=== PATIENT | male | born 1955 | race Caucasian/White ===

== ENCOUNTER 2016-06-25 10:05 | Inpatient (IN) | payer MEDICARE, OTHER ==
--- NOTE | 2016-06-25 12:09 | RAD ---
HISTORY: Shortness of breath, CHF, pneumonia COMPARISONS: November 05, 2013 VIEWS: 2: Frontal dual-energy and lateral views of the chest. FINDINGS: CARDIOMEDIASTINAL SILHOUETTE: The cardiac silhouette is enlarged. The cardiomediastinal silhouette is otherwise normal. TAWANDA: The tawanda are normal. PLEURA: The costophrenic angles are sharp. No pleural abnormalities are noted. LUNG PARENCHYMA: There is diffuse reticular pattern with indistinct pulmonary vessels. ABDOMEN: The upper abdomen is clear. There is no subphrenic gas. BONES AND SOFT TISSUES: No bone or soft tissue abnormalities are noted. OTHER: None. IMPRESSION: CARDIOMEGALY WITH PULMONARY INTERSTITIAL EDEMA
[2016-06-25 12:26] LABS: Hematocrit 44 % (42-52); Mean Corpuscular HGB Conc 32 g/dl (31-36); Mean Corpuscular Hemoglobin 28 pg (27-31); Mean Corpuscular Volume 88 fL (80-94); Mean Platelet Volume 9 um3 (7.4-10.4); Red Blood Count 5.02 10^6/ul (4.0-5.4); Red Cell Distribution Width 15 % (10.5-15); White Blood Count 12.8 10^3/ul (3.5-10.8)
[2016-06-25 12:47] LABS: Albumin 3.5 g/dL (3.2-5.2); BUN/Creatinine Ratio 18.7 (8-20); Calcium 9.4 mg/dL (8.6-10.3); EGFR African American 76.7 (>60); EGFR Non-African American 59.6 (>60); Globulin 3.7 g/dL (2-4); Potassium 4.6 mmol/L (3.5-5.0); Total Bilirubin 0.9 mg/dL (0.2-1.0); Total Protein 7.2 g/dL (6.4-8.9)
[2016-06-25 12:50] LABS: Troponin I 0.11 ng/mL (<0.04)
[2016-06-25] MEDS ORDERED: Furosemide IV* 10 MG/ML 10 ML VIAL (100 MG) IV ONE ×2 (13:10→18:00)
--- NOTE | 2016-06-25 14:06 | PN ---
Progress Note - Progress Note Note: Asked to admit pt for CHF. Pt's HR is now at 35-38. Spoke with erp implementation consultant. We will await cardiology eval prior to admission to our facility. pt may need a transfer
[2016-06-25] MEDS ORDERED: Dextrose 50% Syringe 50 ML* 25 GM/50 ML SYRINGE IV PUSH PRN (14:57)
[2016-06-25] MEDS ORDERED: Morphine INJ* 2 MG/ML 1 ML SYRINGE IV PRN (14:58)
[2016-06-25] MEDS ORDERED: Al Hydrox/Mg Hydrox/Simet LIQ* 30 ML UDC PO PRN (14:58)
[2016-06-25] MEDS ORDERED: Isosorbide Mononitrate ER TAB* 30 MG PO SCH (16:00)
--- NOTE | 2016-06-25 17:30 | HP ---
CC: Dr. Levon Cradona; Dr. Mccallum; Dr. Toribio; Sania Almonte MD, from [facility]; Dr. Millan; [facility] HISTORY AND PHYSICAL: DATE OF ADMISSION: 06/25/16 PRIMARY CARE PROVIDER: Dr. Levon Cardona. CHIEF COMPLAINT: Shortness of breath. HISTORY OF PRESENT ILLNESS: Merline Keith is a 60-year-old male with history of ischemic cardiomyopat hy as well as coronary artery disease and Mobitz type I heart block with persistent bradycardia, who is also diabetic and has chronic wounds on his right foot with Charcot deformity. The patient pres ents today from Wound Care after he was noted to be dyspneic and hypoxemic on room air. His oxygen saturation on room air was 84. The patient today states that he had been dyspneic for approximately at least 3 months, but worse so in the past week. He still sleeps on his side, but he stated that he feels chest congestion when h e lays down. Although his stated that the patient has been having chest pain, the patient natalia es. He stated that it was a sensation of chest congestion when he lays down. He denies any fevers. Here in the emergency room, his heart rate had been in the 35 to 38 range. He is otherwise hemody namically stable with good blood pressure. He was noted to have CHF on his chest x-ray with markedl y elevated brain natriuretic peptide at 546. The patient is being considered right now for admissio n with diagnosis of bradycardia and CHF. PAST MEDICAL HISTORY: 1. History of coronary artery disease, status post cardiac catheterization in 2013 when he initiall y was at our facility, diagnosed with [id number] RI and transferred to [facility] for high-grade risk intervention. Dr. Theodore intervened through the left anterior descending ar marichuy with a stent placement. At that point, his EF was noted be 20%. 2. History of Mobitz type I heart block with sinus bradycardia. 3. History of ischemic cardiomyopathy with EF in 2013 to be noted of 30%. 4. History of diabetes. 5. History of right foot Charcot deformity with chronic right foot wound. 6. History of kidney transplant in 1996. 7. Status post ankle fusion on the right. 8. History of ankle osteomyelitis on the right. 9. Hiatal hernia. 10. Cataract surgery. 11. History of septic arthritis on the right ankle. 12. History of diabetic neuropathic arthritis and neuropathy. 13. History of peripheral vascular disease. 14. Diabetic retinopathy. 15. The patient is hard of hearing. 16. Hypertension. 17. Ischemic cardiomyopathy with EF of 40% to 45%. 18. History of BPH with obstruction. The patient self-catheterizes 4 times a day. OUTPATIENT MEDICATIONS: Include: 1. Tacrolimus 2.5 mg p.o. b.i.d. 2. Prednisone 5 mg daily. 3. CellCept 1000 mg b.i.d. 4. Furosemide 40 mg every other day alternating with 20 mg every other day. 5. Plavix 75 mg daily. 6. Diovan 160 mg b.i.d. 7. Ranitidine 150 mg b.i.d. 8. Folic acid 1 mg daily. 9. Coreg 6.25 mg b.i.d. 10. Vitamin D3 5000 units daily. 11. Mag-Ox 250 mg daily. 12. Alphagan eyedrops 0.2% one drop both eyes b.i.d. 13. Aspirin 81 mg daily. 14. Xalatan 0.005% 1 drop both eyes at bedtime. 15. Insulin glargine 85 units at bedtime. 16. Insulin lispro sliding scale. 17. Imdur ER 30 mg daily, just recently started by Dr. Mccallum. ALLERGIES: No known drug allergies. FAMILY HISTORY: Positive for coronary artery disease in both parents. SOCIAL HISTORY: The patient is , lives with his , who is his surrogate. He is on [employer]. He has 60-pack years smoking, but he quit over 20 years ago. He denies any alcohol or drug use . REVIEW OF SYSTEMS: Please see history of present illness. In addition to above mentioned, the delon ent stated that he was at the wound care center today, and his wounds on the right heel and right fi rst metatarsophalangeal joint were wrapped and are healing well. He is wearing an orthopedic boot with a splint on the right ankle. All the remaining 14 systems were reviewed with the patient and were otherwise negative. PHYSICAL EXAMINATION GENERAL: The patient is a pleasant 61-year-old male with weight noted to be 266 pounds. The patien t is in no acute distress. He is hard of hearing, but alert and oriented x3. VITAL SIGNS: Blood pressure 148/64, heart rate of 36 and regular, respiratory rate 16, oxygen satur ation 98% on 5 L of oxygen via nasal cannula, temperature of 97.7. HEENT: Head atraumatic, normocephalic. Eyes: Pupils equal, reactive to light and accommodation. Oropharynx: Clear. Mucosa moist. NECK: Supple. Positive for JVD bilaterally. There is no bruit, bilaterally. RESPIRATORY: Rales in bilateral lower to mid lungs. CARDIOVASCULAR: Regular rate and rhythm, tachycardia. No murmur. ABDOMEN: Protuberant, soft, nontender. Bowel sounds are present in all 4 quadrants. EXTREMITIES: There is +1 pitting pedal edema bilaterally, right more than left. The patient has a C harcot foot deformity on the right foot. He also has bilateral venostasis with brownish skin discol oration. On the bottom of his right heel, he has an ulceration which is somewhat linear at 1 x 4 cm , appears to be healing, it appears to be stage II to III. It does not appear to be infected. He a lso has a small ulcer underneath his right hallux area, it is approximately 1 cm in diameter, crater like, also stage II to III. There were no other ulcers or lesions noted apart from the above menti oned. NEUROLOGIC: On neuro evaluation, the patient is hard of hearing, otherwise cranial nerves II throug h XII grossly intact. Motor strength is 5/5 bilaterally. Notable for right ankle fusion. ASSESSMENT AND PLAN: The patient currently is in acute, most likely systolic, congestive heart diogenes lure. The bradycardia does not help in this patient's chronic clinical presentation. I discussed t he case with Dr. Millan. It is likely that we will be able to admit the patient to our facility and place him in the intensive care unit. I suspect that even despite diuresis, because of his heart r ate being so slow and currently his EKG showing 2:1 block, the patient may not have good enough card iac output to treat his congestive heart failure with diuretics. The patient does take a small dose of Coreg and that may contribute to his bradycardia and that is going to be held. He may need a te mporary pacer during the transition period. In regards to patient's troponin elevation, which today is 0.11, it is most likely due to demand isc hemia. The patient denies chest pain, although he feels that his chest is congested when he lays do wn. It is most likely due to congestive heart failure. We will trend the troponins. The patient's creatinine is mildly elevated and he does have history of chronic kidney disease and h is creatinine is close to his baseline. In regards to patient's history of status post renal transplant, his Prograf as well as CellCept is going to be continued as well as his daily prednisone. For his diabetes, his insulin Lantus is going to be continued as well as his sliding scale. For wound care management on his right foot, I will ask Wound Care to follow up with consultation as inpatient. For his hypertension, he is going to be continued on Diovan. Coreg is going to be held for the time being due to bradycardia. For DVT prophylaxis, the patient is going to be placed on heparin subcutaneously. For his diabetes, he is going to be treated with insulin Lantus and he is on a sliding scale. Code status is full and his surrogate is his . TIME SPENT: Approximately 78 minutes was spent o n admission of this patient, more than half the time was spent [id number] with the patient during the interview and physical exam. [id number]/[facility] #: [id number]
[2016-06-25] MEDS: Insulin LISPRO* 1 UNITS UNIT SUBCUT SCH ×2 (17:47→21:02)
--- NOTE | 2016-06-25 17:59 | ED ---
Diana Jasmine Auryana, scribed for Luis Rubin MD on 06/25/16 at 1425 . Respiratory - HPI Summary HPI Summary: 61 year old male presents with SOB starting yesterday worse since today at his follow up appoint with wound doctor. Per , while at the wound clinic his O2 sat was 82. Patient states that he also was dizzy at his appointment this morning. Exertion aggravates the SOB. Patient is currently getting over a "chest cold" with wheezing and productive cough - clear sputum was on Z-PACK. He is not on home O2 and takes 1 baby ASA ( 81 mg) a day. Dr. Mccallum is his customer service trainer and Dr. Decker is his Wound physician- reports that his wounds have been good. At his wound appointment this morning, his physician noticed the low O2 sats and recommended that he be seen in the ED. PMHx is significant DM and IN (2013 -chest pressure main symptom with stents and low HR since then) but denies history of CHF, asthma, DVT/PE- no stents in legs, COPD, or emphysema. Patient is a former smoker ( 20 yrs ago). - History of Current Complaint Chief Complaint: EDShortnessOfBreath Stated Complaint: SOB Time Seen by Provider: 06/25/16 11:28 Hx Obtained From: Patient Onset/Duration: Gradual Onset, Lasting Days - 1, Still Present, Worse Since - this morning Timing: Constant Initial Severity: Mild Current Severity: Mild Pain Intensity: 0 Character: Dyspnea at Rest Sputum Amount: None Aggravating Factor(s): Exertion Associated Signs and Symptoms: Dizziness, Dyspnea - WITH LOW O2 Related History: Similar Episode/Dx as - SEE hpi - Allergy/Home Medications Allergies/Adverse Reactions: Allergies Allergy/AdvReac Type Severity Reaction Status Date / Time No Known Allergies Allergy Verified 06/25/15 18:53 Home Medications: Home Medications Brimonidine 0.2 % * [Alphagan P 0.2% *] 1 drop BOTH EYES BID 06/25/16 [History Confirmed 06/25/16] Cholecalciferol [Vitamin D3 Ultra Strength] 5,000 unit PO DAILY 06/25/16 [ History Confirmed 06/25/16] Furosemide TAB* [Lasix TAB*] 40 mg PO EVERY OTHER DAY 06/25/16 [History Confirmed 06/25/16] Insulin GLARGINE(*) [Lantus(*)] 58 units SUBCUT BEDTIME 06/25/16 [History Confirmed 06/25/16] Insulin Lispro [Humalog Kwikpen] 0 - 60 unit SUBCUT TID WITH MEALS 06/25/16 [ History Confirmed 06/25/16] Latanoprost 0.005%* [Xalatan 0.005%*] 1 drop BOTH EYES BEDTIME 06/25/16 [ History Confirmed 06/25/16] Pravastatin (NF) [Pravachol (NF)] 10 mg PO DAILY 06/25/16 [History Confirmed 01/30] Tacrolimus [Tacrolimus 0.5 MG-] 0.5 mg PO BID 06/25/16 [History Confirmed ] Tacrolimus [Tacrolimus 1 MG-] 2 mg PO BID 06/25/16 [History Confirmed 06/25/16] PMH/Surg Hx/FS Hx/Imm Hx Endocrine/Hematology History: Reports: Hx Anticoagulant Therapy, Hx Diabetes Cardiovascular History: Reports: Hx Congestive Heart Failure, Hx Coronary Artery Disease, Hx Hypercholesterolemia, Hx Hypertension, Hx Myocardial Infarction, Hx Peripheral Vascular Disease, Other Cardiovascular Problems/ Disorders - CAD GI History: Reports: Hx Gall Bladder Disease - CHOLECYSTECTOMY, Hx Gastroesophageal Reflux Disease History: Reports: Hx Acute Renal Failure, Hx Chronic Renal Failure, Hx Dialysis, Other Problems/Disorders - KIDNEY TRANSPLANT R 1996 Musculoskeletal History: Reports: Hx Arthritis Sensory History: Reports: Hx Cataracts, Hx Contacts or Glasses, Hx Glaucoma, Hx Legally Blind, Hx Vision Problem, Hx Deafness, Hx Hearing Aid - LEFT, Hx Hearing Problem Opthamlomology History: Reports: Hx Cataracts, Hx Contacts or Glasses, Hx Glaucoma, Hx Legally Blind, Hx Vision Problem Neurological History: Reports: Hx Seizures - s/t hypoglycemia - Surgical History Surgery Procedure, Year, and Place: kidney transplant 1996. RLE VENOUS BYPASS. RIGHT ANKLE SX. hernia. buck. CATARACT BILAT Hx Anesthesia Reactions: No Infectious Disease History: No Infectious Disease History: Reports: Hx Shingles Denies: Traveled Outside the [place] in Last 30 Days - Family History Known Family History: Positive: Cardiac Disease, Hypertension, Diabetes - Social History Occupation: Retired Lives: With Family Alcohol Use: None Substance Use Type: Reports: None Smoking Status (MU): Former Smoker Type: Cigarettes Amount Used/How Often: 2-3 PPD Length of Time of Smoking/Using Tobacco: 10 Years Have You Smoked in the Last Year: No Review of Systems Positive: Other - dizziness. Negative: Fever Eyes: Negative ENT: Negative Negative: Chest Pain Positive: Shortness Of Breath Gastrointestinal: Negative Genitourinary: Negative Musculoskeletal: Negative Skin: Negative Neurological: Negative Psychological: Normal All Other Systems Reviewed And Are Negative: Yes Physical Exam - Summary Physical Exam Summary: The patient is well-nourished in no acute distress and in no acute pain. The skin is warm and dry and skin color reflects adequate perfusion. HEENT: The head is normocephalic and atraumatic. The pupils are equal and reactive. The conjunctivae are clear and without drainage- not pale. Nares are patent and without drainage. Mouth reveals moist mucous membranes and the throat is without erythema and exudate. The external ears are intact. The ear canals are patent and without drainage. The tympanic membranes are intact. Neck is supple with full range of motion and non-tender. There are no carotid bruits. There is no neck vein distension. Respiratory: Chest is non-tender. Lungs are clear to auscultation and breath sounds are symmetrical and equal. Cardiovascular: Heart is bradycardic. There is no murmur or rub auscultated. There is no peripheral edema and pulses are symmetrical and equal. Abdomen: The abdomen is soft and non-tender. There are normal bowel sounds heard in all four quadrants and there is no organomegaly palpated. Musculoskeletal: There is no back pain noted. Extremities are non-tender with full range of motion. There is good capillary refill. There is bilateral LE edema - did not remove stockings. No calf tenderness elicited. Neurological: Patient is alert and oriented to person, place and time. The patient has symmetrical motor strength in all four extremities. Cranial nerves are grossly intact. Deep tendon reflexes are symmetrical and equal in all four extremities. Psychiatric: The patient has an appropriate affect and does not exhibit any anxiety or depression. Triage Information Reviewed: Yes Vital Signs On Initial Exam: Initial Vitals Temp Pulse Resp BP Pulse Ox 97.7 F 35 20 147/58 97 06/25/16 10:12 06/25/16 10:12 06/25/16 10:12 06/25/16 10:12 06/25/16 10:12 Vital Signs Reviewed: Yes Diagnostics - Vital Signs Vital Signs Temp Pulse Resp BP Pulse Ox 06/25/16 11:00 34 15 151/52 96 06/25/16 10:30 35 19 144/56 95 06/25/16 10:23 36 18 147/58 94 06/25/16 10:21 37 93 06/25/16 10:12 97.7 F 35 20 147/58 97 - Laboratory Lab Results: Lab Results 06/25/16 06/25/16 06/25/16 Range/Units 12:10 12:10 12:10 WBC 12.8 H (3.5-10.8) 10^3/ul RBC 5.02 (4.0-5.4) 10^6/ul Hgb 14.0 (14.0-18.0) g/dl Hct 44 (42-52) % MCV 88 (80-94) fL MCH 28 (27-31) pg MCHC 32 (31-36) g/dl RDW 15 (10.5-15) % Plt Count 192 (150-450) 10^3/ul MPV 9 (7.4-10.4) um3 Neut % (Auto) 81.9 (38-83) % Lymph % (Auto) 6.5 L (25-47) % Clark % (Auto) 8.4 (1-9) % Eos % (Auto) 2.5 (0-6) % Baso % (Auto) 0.7 (0-2) % Absolute Neuts (auto) 10.4 H (1.5-7.7) 10^3/ul Absolute Lymphs (auto) 0.8 L (1.0-4.8) 10^3/ul Absolute Monos (auto) 1.1 H (0-0.8) 10^3/ul Absolute Eos (auto) 0.3 (0-0.6) 10^3/ul Absolute Basos (auto) 0.1 (0-0.2) 10^3/ul Absolute Nucleated RBC 0.03 10^3/ul Nucleated RBC % 0.2 INR (Anticoag Therapy) 0.96 (0.89-1.11) Sodium 134 (133-145) mmol/L Potassium 4.6 (3.5-5.0) mmol/L Chloride 104 (101-111) mmol/L Carbon Dioxide 25 (22-32) mmol/L Anion Gap 5 (2-11) mmol/L BUN 23 (6-24) mg/dL Creatinine 1.23 H (0.67-1.17) mg/dL Est GFR ( Amer) 76.7 (>60) Est GFR (Non-Af Amer) 59.6 (>60) BUN/Creatinine Ratio 18.7 (8-20) Glucose 110 H (70-100) mg/dL Lactic Acid (0.5-2.0) mmol/L Calcium 9.4 (8.6-10.3) mg/dL Total Bilirubin 0.90 (0.2-1.0) mg/dL AST 14 (13-39) U/L ALT 9 (7-52) U/L Alkaline Phosphatase 66 (34-104) U/L Total Creatine Kinase 58 (10-223) U/L Troponin I 0.11 H* (<0.04) ng/mL B-Natriuretic Peptide ( - 100) pg/mL Total Protein 7.2 (6.4-8.9) g/dL Albumin 3.5 (3.2-5.2) g/dL Globulin 3.7 (2-4) g/dL Albumin/Globulin Ratio 0.9 L (1-3) 06/25/16 06/25/16 Range/Units 12:10 12:10 WBC (3.5-10.8) 10^3/ul RBC (4.0-5.4) 10^6/ul Hgb (14.0-18.0) g/dl Hct (42-52) % MCV (80-94) fL MCH (27-31) pg MCHC (31-36) g/dl RDW (10.5-15) % Plt Count (150-450) 10^3/ul MPV (7.4-10.4) um3 Neut % (Auto) (38-83) % Lymph % (Auto) (25-47) % Clark % (Auto) (1-9) % Eos % (Auto) (0-6) % Baso % (Auto) (0-2) % Absolute Neuts (auto) (1.5-7.7) 10^3/ul Absolute Lymphs (auto) (1.0-4.8) 10^3/ul Absolute Monos (auto) (0-0.8) 10^3/ul Absolute Eos (auto) (0-0.6) 10^3/ul Absolute Basos (auto) (0-0.2) 10^3/ul Absolute Nucleated RBC 10^3/ul Nucleated RBC % INR (Anticoag Therapy) (0.89-1.11) Sodium (133-145) mmol/L Potassium (3.5-5.0) mmol/L Chloride (101-111) mmol/L Carbon Dioxide (22-32) mmol/L Anion Gap (2-11) mmol/L BUN (6-24) mg/dL Creatinine (0.67-1.17) mg/dL Est GFR ( Amer) (>60) Est GFR (Non-Af Amer) (>60) BUN/Creatinine Ratio (8-20) Glucose (70-100) mg/dL Lactic Acid 1.5 (0.5-2.0) mmol/L Calcium (8.6-10.3) mg/dL Total Bilirubin (0.2-1.0) mg/dL AST (13-39) U/L ALT (7-52) U/L Alkaline Phosphatase (34-104) U/L Total Creatine Kinase (10-223) U/L Troponin I (<0.04) ng/mL B-Natriuretic Peptide 546 H ( - 100) pg/mL Total Protein (6.4-8.9) g/dL Albumin (3.2-5.2) g/dL Globulin (2-4) g/dL Albumin/Globulin Ratio (1-3) Result Diagrams: 06/25/16 12:10 06/25/16 12:10 Lab Statement: Any lab studies that have been ordered have been reviewed, and results considered in the medical decision making process. - Radiology CXR Xray Interpretation: Positive (See Comments) - IMPRESSION: CARDIOMEGALY WITH PULMONARY INTERSTITIAL EDEMA Radiology Interpretation Completed By: Radiologist - EKG 10:27 EKG Interpretation: BRADYCARDIA , OLD ANTERIOR WALL IN Disposition - Course Assessment/Plan: 61 year old male presents with SOB starting yesterday worse since today at his follow up appoint with wound doctor. Patient states that he also was dizzy at his appointment this morning. Exertion aggravates the SOB. At his wound appointment this morning, his physician noticed the low O2 sats and recommended that he be seen in the ED. PMHx is significant DM and IN (2013 - chest pressure main symptom with stents and low HR since then) but denies history of CHF, asthma, DVT/PE- no stents in legs, COPD, or emphysema. Patient is a former smoker ( 20 yrs ago). LABS: troponin 0.11. BNP 546. EKG:OLD ANTERIOR WALL IN, BRADYCARDIA. CXR - IMPRESSION: CARDIOMEGALY WITH PULMONARY INTERSTITIAL EDEMA. CONSULT WITH DR. SANDY, AGREES TO ADMIT PATIENT. DIAGNOSIS : CHF - Differential Dx - Cardiopulmonary Differential Diagnoses - Cardiopulmonary: Acute Coronary, Acute Dyspnea, Aortic Stenosis, CAD, Cardiomyopathy, CHF, Lower Resp Infection - Diagnoses Provider Diagnoses: CHF (congestive heart failure), Bradycardia with 31-40 beats per minute - Physician Notifications Discussed Care Of Patient With: Dr. Sandy Time Discussed With Above Provider: 13:14 - agrees to admit - Critical Care Time Critical Care Time: 30-74 min - 30 minutes Discharge - Discharge Plan Condition: Stable Disposition: ADMITTED TO [facility] The documentation as recorded by the Diana strange Auryana accurately reflects the service I personally performed and the decisions made by , Luis Rubin MD.
--- NOTE | 2016-06-25 19:10 | CONS ---
CARDIOLOGY CONSULTATION: DATE OF CONSULT: 06/25/16 PATIENT OF: Dr. Mccallum and Dr. Cardona. REQUESTING PHYSICIAN: Dr. Sandy. REASON FOR EVALUATION: Bradycardia, CHF. HISTORY OF PRESENT ILLNESS: This is a very pleasant 61-year-old man who is accompanied by his . He has multiple medical problems including history of CO in 2013 treated with an LAD stent by Dr. Theodore at [facility] as well as hypertension, diabetes, hyperlipidemia, and renal failure, status post renal transplant. He has also been followed by Dr. Mccallum for Wenckebach and bradycardia. It is unclear that he was symptomatic from his bradycardia and Dr. Mccallum was concerned that he may have had progression of his bradycardia. He had ordered workup which included echo and a stress test and added nitrates. He also thought he needed better blood pressure management. It was thought that his shortness of breath was difficult to correlate with his bradycardia and he had declined an event monitor. He was scheduled for an echo and a nuclear stress test to further evaluate. The patient and his think that he has been more short of breath in the last couple weeks. He may have had more edema, but they are not certain. They are not sure that his weight has really changed. He said he is limited by a Charcot foot and some wound-healing issues. He said that he normally walks in the house and walks in from the parking lot to the wound care at the wound center recently. He bent over and felt a little more lightheaded and was sent to the emergency room. He was found to be in 2:1 second degree block. He continues on Coreg 6.25 mg b.i.d. for his LV dysfunction and ischemic heart disease. He has had no syncope, but he suggested that he took a nap and went to take a shower. After the shower, he felt momentarily lightheaded that resolved after a few minutes. He denies fevers. He did have a cold and some nonproductive cough or occasionally productive of clear sputum back on Tuesday and saw Dr. Cardona. He was treated with Z-Salomon and felt better. PAST MEDICAL HISTORY: Includes: 1. Hypertension. 2. Coronary artery disease with ST elevation CO, transferred to Dr. Theodore. In September 2013, he had 99% proximal LAD, circumflex had a 50% proximal lesion. OM-2 had a 50% lesion. There is a diagonal with minimal anterograde flow and a diffusely diseased LAD. RCA had a 50% mid lesion. Posterolateral branch was 100% obstructed. LV revealed a large akinetic apical region with an EF of 20%. Of note, he had improvement in his EF on an echo in 2014. At that time, he had moderately dilated LV, mild LVH. Upper interventricular septum was akinetic with apical akinesis. Hypokinesis of the anterolateral wall. EF of 40 % to 45%, visually estimated at 40%. Abnormal LV diastolic dysfunction. Trace AI. Trace MR. He also had a Holter monitor as recently as May 2015. At that time, he had sinus rhythm with sinus bradycardia, average heart rate of 56 with a minimum of 27 and a maximum of 82, 33 PVCs. No SVT. Frequent Wenckebach rhythm creating heart rate down to the 20s. He also has a history of hypertension, diabetes, hyperlipidemia, renal failure, status post renal transplant in 1996. He had TIA in 1990 and also he has glaucoma and diabetic neuropathy and is legally blind. He has a history of tobacco use, discontinued 20 years ago. No asthma or emphysema. PAST SURGICAL HISTORY: Includes: 1. Right foot surgeries for Charcot foot. 2. Herniorrhaphy. 3. Renal transplant, 1996. 4. He also had a TIA in the remote past. MEDICATIONS: Include: 1. Insulin. 2. Tacrolimus 2 mg b.i.d. and 0.5 mg b.i.d. 3. Prednisone 5 mg q.a.m. 4. CellCept 1000 mg b.i.d. 5. Lasix 40 mg every other day alternating with 20 mg every other day. 6. Pravastatin 10 mg a day. 7. Clopidogrel 75 mg a day. 8. Valsartan 160 mg b.i.d. 9. Ranitidine 150 mg b.i.d. 10. Folic acid 1 mg a day. 11. Carvedilol 6.25 b.i.d. 12. Vitamin D 5000 units daily. 13. Magnesium 250 mg q.a.m. 14. Aspirin 81 mg a day. As an inpatient, he has been given Lasix 80 mg IV with diuresis. FAMILY HISTORY: His mother of lung problems at 90. Father 68 with CHF. Brother who of an CO at 68 and an uncle who had a pacer and at 81. SOCIAL HISTORY: He drinks 1 cup of caffeinated soda a day. He denies alcohol use. He uses 2 pillows at night for comfort. He does self-catheterization. He is to his second . He had 2 children with his first . REVIEW OF SYSTEMS: Review of systems x10 was negative except as above. PHYSICAL EXAM: He is a well-developed, obese gentleman, in no apparent distress. Weight 266 pounds, heart rate ranging from 40s to 60s with what appears to be sinus rhythm with 2:1 AV block. Occasionally, higher degrees of conduction. Blood pressure 148/64. JVD approximately 9 cm with hepatojugular reflex. Carotids 2+ without bruits. No cervical adenopathy or thyromegaly. Atraumatic, normocephalic. Extraocular muscles intact. Sclerae anicteric. Cardiac Exam: S1, S2 with no clear murmurs, gallops, or rubs. Chest was clear. No CVAT. Abdomen: Bowel sounds present. Nontender. Femoral pulses intact with bruits bilaterally. Distal pulses intact. There is 1+ edema to the left, 2+ to 3+ edema of the right with a deformed right foot. DIAGNOSTIC STUDIES/LAB DATA: EKG revealed sinus rhythm with 2:1 AV block. There appears to be anteroseptal CO and lateral ST-T changes, consider ischemia and EKG similar to the April 2016 EKG. Labs include white count of 12.8, hemoglobin of 14, hematocrit of 44, platelet count of 192. Troponin mildly elevated at 0.11. Lactic acid 1.5, BUN of 23, creatinine of 1.23 similar to what he has had in the past, . BNP elevated at 546. Chest x-ray by report revealed cardiomyopathy with pulmonary edema. IMPRESSION: Mr. Keith appears to have multiple medical problems including second degree AV block with bradycardia as well as hypertension, renal insufficiency, status post transplant, diabetes, coronary artery disease, cardiomyopathy. He seems to have improved after diuresis; however, given his progressive bradycardia and the need for beta sofía therapy for his LV dysfunction and ischemic heart disease, I think a pacemaker at this point is warranted. I did explain to him and his that he may require a biventricular pacemaker and/or defibrillator depending on the degree of LV impairment found. I did explain that we do not implant biventricular pacemakers here. I discussed the case with Dr. Sandy, his hospitalist, and Dr. Mccallum who is his outpatient equities trader, who concur with the plan as follows: 1. I would hold the carvedilol for now and allow his heart rate to increase. 2. I agree with gentle diuresis. So far, he has responded. I would be cautious about overdiuresing him because of his potential for renal insufficiency and hypertension. 3. Would hold his clopidogrel at this point in anticipation of possible surgical procedure for pacemaker. 4. I would continue aspirin. 5. Would add nitrates to his regimen as suggested by Dr. Mccallum in the past for heart failure, blood pressure control, and possible ischemia. 6. He may require advancement of his antihypertensive regimen off of the beta sofía. 7. The patient understands that if his EF is low, we will consider transfer to an EP center that could implant a biventricular pacemaker and/or defibrillator. 8. If he has worsening bradycardia, he may require temporary transvenous pacemaker in the interim. Currently, he appears to be relatively stable. I think we can watch him closely in the ICU for interval development of worsening bradycardia. 9. Consider adding nitrates or amlodipine to his regimen as tolerated if acceptable from a transplant standpoint. [id number]/[facility] #: [id number] SUMI
--- NOTE | 2016-06-25 19:26 | HP ---
HISTORY AND PHYSICAL: ADDENDUM: Please note in the patient's medications the patient is also on Imdur ER 30 mg daily, which was not previously dictated. The patient also is on different dose of insulin than previously dictated. The patient is on 58 units of Lantus insulin at night and not 85 as previously dictated. Please also note that after discussion with Dr. Millan and Dr. Mccallum it was decided this patient is going to be stabilized over the weekend and diuresed with cautiously watching his kidney functions since the patient is a kidney transplant patient. We will also stop Plavix since most likely the patient will require biventricular pacer. He may also need ICD and that will depend upon his evaluation of his EF. [id number]/[facility] #: [id number] SUMI
[2016-06-25] MEDS: Acetaminophen TAB* 325 MG PO PRN (19:55)
[2016-06-25] MEDS ORDERED: Insulin GLARGINE(*) 1 UNITS UNIT SUBCUT SCH (21:00)
[2016-06-25] MEDS: Latanoprost 0.005%* 2.5 ml BTL BOTH EYES SCH (21:04)
[2016-06-25] MEDS: Mycophenolate Mofetil TAB(*) 500 MG PO SCH (21:06)
[2016-06-25] MEDS: Tacrolimus CAP(*) 1 MG PO SCH (21:07)
[2016-06-25] MEDS: Tacrolimus CAP(*) 0.5 MG PO SCH (21:07)
[2016-06-25] MEDS: Valsartan TAB* 80 MG PO SCH (21:08)
[2016-06-25] MEDS: Heparin VIAL(*) 5000 UNITS/ML VIAL (FIVE THOUSAND) SUBCUT SCH (21:10)
[2016-06-26] MEDS: Heparin VIAL(*) 5000 UNITS/ML VIAL (FIVE THOUSAND) SUBCUT SCH ×3 (05:16→21:15)
[2016-06-26 05:34] LABS: Hematocrit 42 % (42-52); Hemoglobin 13.6 g/dl (14.0-18.0); Mean Corpuscular HGB Conc 32 g/dl (31-36); Mean Corpuscular Hemoglobin 28 pg (27-31); Mean Corpuscular Volume 88 fL (80-94); Mean Platelet Volume 9 um3 (7.4-10.4); Red Blood Count 4.81 10^6/ul (4.0-5.4); Red Cell Distribution Width 14 % (10.5-15); White Blood Count 9.1 10^3/ul (3.5-10.8)
[2016-06-26 05:46] LABS: BUN/Creatinine Ratio 19.8 (8-20); Calcium 8.7 mg/dL (8.6-10.3); EGFR African American 96.3 (>60); EGFR Non-African American 74.9 (>60)
[2016-06-26 05:56] LABS: Potassium 4.2 mmol/L (3.5-5.0)
[2016-06-26] MEDS: Insulin LISPRO* 1 UNITS UNIT SUBCUT SCH ×4 (07:32→21:10)
--- NOTE | 2016-06-26 08:26 | PN ---
Subjective Date of Service: 06/26/16 Interval History: Pt feels much better. Breathing is " back to normal", although 02 sat drops to 92% when 02 was taken off Objective Active Medications: Acetaminophen (Tylenol Tab*) 650 mg PO Q4H PRN PRN Reason: FEVER/PAIN Last Admin: 06/25/16 19:55 Dose: 650 mg Al Hydrox/Mg Hydrox/Simethicone (Maalox Plus*) 30 ml PO Q6H PRN PRN Reason: INDIGESTION Aspirin (Aspirin Ec Low Dose*) 81 mg PO QAM [facility] Brimonidine Tartrate (Alphagan 0.2%) 1 drop BOTH EYES BID [facility] Last Admin: 06/25/16 21:15 Dose: Not Given Cholecalciferol (Vitamin D Tab*) 5,000 units PO DAILY [facility] Dextrose (D50w Syringe 50 Ml*) 12.5 gm IV PUSH .FOR FS < 60 - SS PRN PRN Reason: FS < 60 Folic Acid (Folvite Tab*) 1 mg PO QAM [facility] Furosemide (Lasix Iv*) 40 mg IV 0800,1700 [facility] Heparin Sodium (Porcine) (Heparin Vial(*)) 5,000 units SUBCUT Q8HR [facility] Last Admin: 06/26/16 05:16 Dose: 5,000 units Insulin Glargine (Lantus(*)) 50 units SUBCUT Q24H [facility] Last Admin: 06/25/16 21:01 Dose: 50 unit Insulin Human Lispro (Humalog*) 0 units SUBCUT ACHS [facility] PRN Reason: Protocol Last Admin: 06/26/16 07:32 Dose: Not Given Isosorbide Mononitrate (Imdur Er Tab*) 30 mg PO 0900 [facility] Latanoprost (Xalatan 0.005%*) 1 drop BOTH EYES BEDTIME [facility] Last Admin: 06/25/16 21:04 Dose: 1 drop Morphine Sulfate (Morphine Inj (Syringe)*) 1 mg IV Q4H PRN PRN Reason: PAIN Mycophenolate Mofetil (Cellcept Tab(*)) 1,000 mg PO BID [facility] Last Admin: 06/25/16 21:06 Dose: 1,000 mg Pravastatin Sodium (Pravachol (Nf)) 10 mg PO DAILY [facility] Prednisone (Deltasone Tab*) 5 mg PO QAM [facility] Tacrolimus (Prograf Cap(*)) 2 mg PO BID [facility] Last Admin: 06/25/16 21:07 Dose: 2 mg Tacrolimus (Prograf Cap(*)) 0.5 mg PO BID [facility] Last Admin: 06/25/16 21:07 Dose: 0.5 mg Valsartan (Diovan Tab*) 160 mg PO BID [facility] Last Admin: 06/25/16 21:08 Dose: 160 mg Vital Signs 06/25/16 06/25/16 06/25/16 15:00 16:00 17:00 Temperature Pulse Rate 39 38 38 Respiratory 17 20 18 Rate Blood Pressure (mmHg) O2 Sat by Pulse 97 97 96 Oximetry 06/25/16 06/25/16 06/25/16 17:09 17:14 17:26 Temperature 98.3 F Pulse Rate 38 39 Respiratory 21 19 Rate Blood Pressure 183/68 183/68 (mmHg) O2 Sat by Pulse 96 91 Oximetry 06/25/16 06/25/16 06/25/16 17:43 18:00 18:22 Temperature Pulse Rate 42 Respiratory 18 22 20 Rate Blood Pressure (mmHg) O2 Sat by Pulse 94 Oximetry 06/25/16 06/25/16 06/25/16 18:24 18:30 19:00 Temperature Pulse Rate 40 41 38 Respiratory 18 22 16 Rate Blood Pressure 170/64 168/62 (mmHg) O2 Sat by Pulse 94 95 95 Oximetry 06/25/16 06/25/16 06/25/16 19:30 20:00 20:05 Temperature 97.8 F Pulse Rate 39 38 36 Respiratory 20 15 17 Rate Blood Pressure 168/74 179/74 165/62 (mmHg) O2 Sat by Pulse 94 94 92 Oximetry 06/25/16 06/25/16 06/25/16 20:30 21:00 21:30 Temperature Pulse Rate 35 45 109 Respiratory 18 17 14 Rate Blood Pressure 158/58 178/65 175/79 (mmHg) O2 Sat by Pulse 93 94 94 Oximetry 06/25/16 06/25/16 06/25/16 22:00 22:30 22:51 Temperature Pulse Rate 58 55 Respiratory 23 20 22 Rate Blood Pressure 164/76 149/63 (mmHg) O2 Sat by Pulse 94 94 Oximetry 06/25/16 06/25/16 06/25/16 23:00 23:27 23:30 Temperature Pulse Rate 57 51 Respiratory 21 18 27 Rate Blood Pressure 165/78 148/104 (mmHg) O2 Sat by Pulse 94 94 Oximetry 06/25/16 06/26/16 06/26/16 23:39 00:00 00:01 Temperature Pulse Rate 54 44 52 Respiratory 21 21 23 Rate Blood Pressure 143/69 (mmHg) O2 Sat by Pulse 95 95 94 Oximetry 06/26/16 06/26/16 06/26/16 00:37 01:00 02:00 Temperature Pulse Rate 47 52 67 Respiratory 18 19 19 Rate Blood Pressure 156/57 147/75 118/61 (mmHg) O2 Sat by Pulse 94 93 91 Oximetry 06/26/16 06/26/16 06/26/16 03:00 03:23 04:00 Temperature 98.5 F Pulse Rate 55 46 Respiratory 20 22 16 Rate Blood Pressure 136/70 153/78 (mmHg) O2 Sat by Pulse 95 97 Oximetry 06/26/16 06/26/16 06/26/16 04:57 05:00 05:23 Temperature Pulse Rate 45 Respiratory 20 20 19 Rate Blood Pressure 136/63 (mmHg) O2 Sat by Pulse 94 Oximetry 06/26/16 06/26/16 06/26/16 06:00 06:48 07:00 Temperature Pulse Rate 54 57 Respiratory 16 16 16 Rate Blood Pressure 150/75 172/82 (mmHg) O2 Sat by Pulse 96 95 Oximetry 06/26/16 06/26/16 08:00 08:14 Temperature 97.7 F Pulse Rate 48 Respiratory 21 Rate Blood Pressure 177/83 (mmHg) O2 Sat by Pulse 96 Oximetry Oxygen Devices in Use Now: Nasal Cannula - at 2 L Appearance: 61 yo m in nAd, aAOx3, [place] Eyes: No Scleral Icterus, PERRLA Ears/Nose/Mouth/Throat: NL Teeth, Lips, Gums, Mucous Membranes Moist Neck: NL Appearance and Movements; NL JVP, Trachea Midline Respiratory: Symmetrical Chest Expansion and Respiratory Effort, - - crackles at b/l; bases Cardiovascular: NL Sounds; No Murmurs; No JVD, - - irregular, telem shows occasionall dropped beat Abdominal: NL Sounds; No Tenderness; No Distention, No Hepatosplenomegaly Lymphatic: No Cervical Adenopathy Extremities: No Clubbing, Cyanosis, - - trace pedal edema b/l, Charcot R ankle deformity Skin: No Nodules or Sclerosis, - - R plantar foot aspect 2 ulcer stage 2-3: heel -1x3 cm and under R 1 st MTP joint -1 cm in diam Neurological: Alert and Oriented x 3, NL Muscle Strength and Tone, - - R ankle fused Result Diagrams: 06/26/16 05:15 06/26/16 05:15 Additional Lab and Data: Lab Results 06/25/16 06/25/16 06/25/16 Range/Units 12:10 12:10 12:10 WBC 12.8 H (3.5-10.8) 10^3/ul RBC 5.02 (4.0-5.4) 10^6/ul Hgb 14.0 (14.0-18.0) g/dl Hct 44 (42-52) % MCV 88 (80-94) fL MCH 28 (27-31) pg MCHC 32 (31-36) g/dl RDW 15 (10.5-15) % Plt Count 192 (150-450) 10^3/ul MPV 9 (7.4-10.4) um3 Neut % (Auto) 81.9 (38-83) % Lymph % (Auto) 6.5 L (25-47) % Norton % (Auto) 8.4 (1-9) % Eos % (Auto) 2.5 (0-6) % Baso % (Auto) 0.7 (0-2) % Absolute Neuts (auto) 10.4 H (1.5-7.7) 10^3/ul Absolute Lymphs (auto) 0.8 L (1.0-4.8) 10^3/ul Absolute Monos (auto) 1.1 H (0-0.8) 10^3/ul Absolute Eos (auto) 0.3 (0-0.6) 10^3/ul Absolute Basos (auto) 0.1 (0-0.2) 10^3/ul Absolute Nucleated RBC 0.03 10^3/ul Nucleated RBC % 0.2 INR (Anticoag Therapy) 0.96 (0.89-1.11) Sodium 134 (133-145) mmol/L Potassium 4.6 (3.5-5.0) mmol/L Chloride 104 (101-111) mmol/L Carbon Dioxide 25 (22-32) mmol/L Anion Gap 5 (2-11) mmol/L BUN 23 (6-24) mg/dL Creatinine 1.23 H (0.67-1.17) mg/dL Est GFR ( Amer) 76.7 (>60) Est GFR (Non-Af Amer) 59.6 (>60) BUN/Creatinine Ratio 18.7 (8-20) Glucose 110 H (70-100) mg/dL Lactic Acid (0.5-2.0) mmol/L Calcium 9.4 (8.6-10.3) mg/dL Total Bilirubin 0.90 (0.2-1.0) mg/dL AST 14 (13-39) U/L ALT 9 (7-52) U/L Alkaline Phosphatase 66 (34-104) U/L Total Creatine Kinase 58 (10-223) U/L Troponin I 0.11 H* (<0.04) ng/mL B-Natriuretic Peptide ( - 100) pg/mL Total Protein 7.2 (6.4-8.9) g/dL Albumin 3.5 (3.2-5.2) g/dL Globulin 3.7 (2-4) g/dL Albumin/Globulin Ratio 0.9 L (1-3) 06/25/16 06/25/16 Range/Units 12:10 12:10 WBC (3.5-10.8) 10^3/ul RBC (4.0-5.4) 10^6/ul Hgb (14.0-18.0) g/dl Hct (42-52) % MCV (80-94) fL MCH (27-31) pg MCHC (31-36) g/dl RDW (10.5-15) % Plt Count (150-450) 10^3/ul MPV (7.4-10.4) um3 Neut % (Auto) (38-83) % Lymph % (Auto) (25-47) % Norton % (Auto) (1-9) % Eos % (Auto) (0-6) % Baso % (Auto) (0-2) % Absolute Neuts (auto) (1.5-7.7) 10^3/ul Absolute Lymphs (auto) (1.0-4.8) 10^3/ul Absolute Monos (auto) (0-0.8) 10^3/ul Absolute Eos (auto) (0-0.6) 10^3/ul Absolute Basos (auto) (0-0.2) 10^3/ul Absolute Nucleated RBC 10^3/ul Nucleated RBC % INR (Anticoag Therapy) (0.89-1.11) Sodium (133-145) mmol/L Potassium (3.5-5.0) mmol/L Chloride (101-111) mmol/L Carbon Dioxide (22-32) mmol/L Anion Gap (2-11) mmol/L BUN (6-24) mg/dL Creatinine (0.67-1.17) mg/dL Est GFR ( Amer) (>60) Est GFR (Non-Af Amer) (>60) BUN/Creatinine Ratio (8-20) Glucose (70-100) mg/dL Lactic Acid 1.5 (0.5-2.0) mmol/L Calcium (8.6-10.3) mg/dL Total Bilirubin (0.2-1.0) mg/dL AST (13-39) U/L ALT (7-52) U/L Alkaline Phosphatase (34-104) U/L Total Creatine Kinase (10-223) U/L Troponin I (<0.04) ng/mL B-Natriuretic Peptide 546 H ( - 100) pg/mL Total Protein (6.4-8.9) g/dL Albumin (3.2-5.2) g/dL Globulin (2-4) g/dL Albumin/Globulin Ratio (1-3) Assess/Plan/Problems-Billing Assessment: 61 yo M with h/o s/p renal transplant, CAD, Mobitz 1 heart block and bradycardia, ischemic cardiomyopathy (EF 45%), CKD, DM, HTN, Charcot foot and R foot chronic wounds presents with bradycardia and CHF - Patient Problems (1) Acute CHF Comment: Systolic, due to a combination of low EF and decreased cardiac output secondary to bradycardia cont Lasix IV SOB improving Echo to be done tomorrow Cardiology following (2) Bradycardia Comment: Coreg d/c'd at admission HR now between 27 and 50 Continues to appear to be occasional Mobitz 2 Cotn Telem in ICU consideration for biventricular pacer ongoing (3) Elevated troponin Comment: " flat" at 0.11-0.1-suspect due to a combination of CKD and demand ischemia from CHF No CP cont ASA coreg held Plavix held due to possible pacer (4) Diabetes Comment: insulin dependent mild hypoglycermia this aM Will decrease Lantus to 35 Units tonight (5) Leg wound, right Comment: wound care consult not avaliable on weekend cont daily dressings with Ca alginate Not infected, healing (6) Renal insufficiency Comment: s/p renal transplant: cont Cellcept/Prograf/Prednisone Creat improved with diuresis (7) HTN (hypertension) Comment: SBP in 170's this M, but that is prior to AM meds. May need to have his med adjusted due to discontinuation of Coreg, but will monitor for today. (8) DVT prophylaxis Comment: heparin sc Status and Disposition: inpatient
[2016-06-26] MEDS: Furosemide IV* 10 MG/ML VIAL (40 MG) IV SCH ×2 (08:51→16:54)
[2016-06-26] MEDS: Cholecalciferol TAB* 1000 UNITS PO SCH (08:51)
[2016-06-26] MEDS: Isosorbide Mononitrate ER TAB* 30 MG PO SCH (08:52)
[2016-06-26] MEDS: Aspirin EC Low Dose* 81 MG TAB.EC PO SCH (08:52)
[2016-06-26] MEDS: Folic Acid TAB* 1 MG PO SCH (08:52)
[2016-06-26] MEDS: predniSONE TAB* 5 MG PO SCH (08:52)
[2016-06-26] MEDS: Mycophenolate Mofetil TAB(*) 500 MG PO SCH ×2 (08:55→21:12)
[2016-06-26] MEDS: CMC: Pravastatin (NF) 20 MG TAB PO SCH (08:56)
[2016-06-26] MEDS: Valsartan TAB* 80 MG PO SCH ×2 (08:56→21:14)
[2016-06-26] MEDS: Tacrolimus CAP(*) 1 MG PO SCH ×2 (08:58→21:13)
[2016-06-26] MEDS: Tacrolimus CAP(*) 0.5 MG PO SCH ×2 (08:58→21:14)
[2016-06-26] MEDS ORDERED: Insulin GLARGINE(*) 1 UNITS UNIT SUBCUT SCH ×3 (09:00→21:00)
[2016-06-26] MEDS ORDERED: Clopidogrel TAB* 75 MG PO SCH (09:00)
[2016-06-26 09:06] LABS: TSH (Thyroid Stimulating Horm) 2.19 mcIU/mL (0.34-5.60)
[2016-06-26] MEDS ORDERED: Magnesium Hydroxide LIQ* 30 ML UDC PO PRN (11:09)
[2016-06-26] MEDS ORDERED: Insulin LISPRO* 1 UNITS UNIT SUBCUT ONE ×2 (12:51→15:39)
[2016-06-26] MEDS ORDERED: Dextrose 50% Syringe 50 ML* 25 GM/50 ML SYRINGE IV PUSH PRN ×2 (12:51→15:39)
[2016-06-26] MEDS ORDERED: Insulin GLARGINE(*) 1 UNITS UNIT SUBCUT ONE (15:39)
[2016-06-26] MEDS: Latanoprost 0.005%* 2.5 ml BTL BOTH EYES SCH (21:09)
[2016-06-27] MEDS: Heparin VIAL(*) 5000 UNITS/ML VIAL (FIVE THOUSAND) SUBCUT SCH ×3 (05:19→21:32)
[2016-06-27 05:51] LABS: Calcium 9.2 mg/dL (8.6-10.3); EGFR Non-African American 63.8 (>60); Potassium 4.2 mmol/L (3.5-5.0)
[2016-06-27] MEDS ORDERED: Furosemide IV* 10 MG/ML VIAL (40 MG) IV ONE (07:33)
[2016-06-27] MEDS: Insulin LISPRO* 1 UNITS UNIT SUBCUT SCH ×5 (08:58→21:31)
[2016-06-27] MEDS: Cholecalciferol TAB* 1000 UNITS PO SCH (09:00)
[2016-06-27] MEDS: Folic Acid TAB* 1 MG PO SCH (09:00)
[2016-06-27] MEDS: Valsartan TAB* 80 MG PO SCH ×2 (09:01→21:32)
[2016-06-27] MEDS: Isosorbide Mononitrate ER TAB* 30 MG PO SCH (09:01)
[2016-06-27] MEDS: Aspirin EC Low Dose* 81 MG TAB.EC PO SCH (09:01)
[2016-06-27] MEDS: CMC: Pravastatin (NF) 20 MG TAB PO SCH (09:01)
[2016-06-27] MEDS: predniSONE TAB* 5 MG PO SCH (09:02)
[2016-06-27] MEDS: Tacrolimus CAP(*) 0.5 MG PO SCH ×2 (09:02→21:31)
[2016-06-27] MEDS: Tacrolimus CAP(*) 1 MG PO SCH ×2 (09:02→21:32)
[2016-06-27] MEDS: Mycophenolate Mofetil TAB(*) 500 MG PO SCH ×2 (09:03→21:31)
--- NOTE | 2016-06-27 10:12 | PN ---
Subjective Date of Service: 06/27/16 Interval History: Pt feels well. Still on 02 at 2 l, on RA 02 sats down to 90% when sitting Objective Active Medications: Acetaminophen (Tylenol Tab*) 650 mg PO Q4H PRN PRN Reason: FEVER/PAIN Last Admin: 06/25/16 19:55 Dose: 650 mg Al Hydrox/Mg Hydrox/Simethicone (Maalox Plus*) 30 ml PO Q6H PRN PRN Reason: INDIGESTION Aspirin (Aspirin Ec Low Dose*) 81 mg PO QAM [facility] Last Admin: 06/27/16 09:01 Dose: 81 mg Brimonidine Tartrate (Alphagan 0.2%) 1 drop BOTH EYES 0900,1700 [facility] Last Admin: 06/27/16 09:04 Dose: 1 drop Cholecalciferol (Vitamin D Tab*) 5,000 units PO DAILY [facility] Last Admin: 06/27/16 09:00 Dose: 5,000 units Dextrose (D50w Syringe 50 Ml*) 12.5 gm IV PUSH .FOR FS < 60 - SS PRN PRN Reason: FS < 60 Folic Acid (Folvite Tab*) 1 mg PO QAM [facility] Last Admin: 06/27/16 09:00 Dose: 1 mg Heparin Sodium (Porcine) (Heparin Vial(*)) 5,000 units SUBCUT Q8HR [facility] Last Admin: 06/27/16 05:19 Dose: 5,000 units Insulin Human Lispro (Humalog*) 0 units SUBCUT ACHS [facility] PRN Reason: Protocol Last Admin: 06/27/16 08:58 Dose: 3 unit Isosorbide Mononitrate (Imdur Er Tab*) 30 mg PO 0900 [facility] Last Admin: 06/27/16 09:01 Dose: 30 mg Latanoprost (Xalatan 0.005%*) 1 drop BOTH EYES BEDTIME [facility] Last Admin: 06/26/16 21:09 Dose: 1 drop Magnesium Hydroxide (Milk Of Magnesia Liq*) 30 ml PO Q4H PRN PRN Reason: DISCOMFORT Morphine Sulfate (Morphine Inj (Syringe)*) 1 mg IV Q4H PRN PRN Reason: PAIN Mycophenolate Mofetil (Cellcept Tab(*)) 1,000 mg PO BID [facility] Last Admin: 06/27/16 09:03 Dose: 1,000 mg Pravastatin Sodium (Pravachol (Nf)) 10 mg PO DAILY [facility] Last Admin: 06/27/16 09:01 Dose: 10 mg Prednisone (Deltasone Tab*) 5 mg PO QAM [facility] Last Admin: 06/27/16 09:02 Dose: 5 mg Tacrolimus (Prograf Cap(*)) 2 mg PO BID [facility] Last Admin: 06/27/16 09:02 Dose: 2 mg Tacrolimus (Prograf Cap(*)) 0.5 mg PO BID [facility] Last Admin: 06/27/16 09:02 Dose: 0.5 mg Valsartan (Diovan Tab*) 160 mg PO BID [facility] Last Admin: 06/27/16 09:01 Dose: 160 mg Vital Signs 06/26/16 06/26/16 06/26/16 11:00 11:06 12:00 Temperature 98 F Pulse Rate 50 46 Respiratory 20 18 19 Rate Blood Pressure 143/56 151/53 (mmHg) O2 Sat by Pulse 90 89 Oximetry 06/26/16 06/26/16 06/26/16 13:00 14:00 14:20 Temperature Pulse Rate 37 38 Respiratory 17 20 20 Rate Blood Pressure 163/57 156/58 (mmHg) O2 Sat by Pulse 95 94 Oximetry 06/26/16 06/26/16 06/26/16 15:00 15:55 16:00 Temperature 98.2 F Pulse Rate 42 46 Respiratory 16 21 Rate Blood Pressure 149/73 151/49 (mmHg) O2 Sat by Pulse 94 90 Oximetry 06/26/16 06/26/16 06/26/16 16:20 17:00 17:35 Temperature Pulse Rate 58 Respiratory 23 18 24 Rate Blood Pressure 141/76 (mmHg) O2 Sat by Pulse 90 Oximetry 06/26/16 06/26/16 06/26/16 18:00 19:00 20:00 Temperature 98.5 F Pulse Rate 65 79 72 Respiratory 20 25 25 Rate Blood Pressure 140/73 127/69 132/58 (mmHg) O2 Sat by Pulse 93 89 90 Oximetry 06/26/16 06/26/16 06/26/16 21:00 22:00 22:19 Temperature Pulse Rate 54 61 55 Respiratory 24 19 20 Rate Blood Pressure 147/64 135/64 (mmHg) O2 Sat by Pulse 91 94 94 Oximetry 06/26/16 06/26/16 06/26/16 22:24 23:00 23:39 Temperature 98.9 F Pulse Rate 45 Respiratory 19 18 Rate Blood Pressure 153/74 (mmHg) O2 Sat by Pulse 94 Oximetry 06/27/16 06/27/16 06/27/16 00:00 00:02 00:36 Temperature Pulse Rate 59 52 Respiratory 19 20 18 Rate Blood Pressure 151/45 (mmHg) O2 Sat by Pulse 93 92 Oximetry 06/27/16 06/27/16 06/27/16 01:00 01:53 01:55 Temperature Pulse Rate 47 55 Respiratory 25 18 21 Rate Blood Pressure 138/66 144/86 (mmHg) O2 Sat by Pulse 95 94 Oximetry 06/27/16 06/27/16 06/27/16 02:00 02:01 02:57 Temperature Pulse Rate 47 46 Respiratory 19 20 22 Rate Blood Pressure 156/84 (mmHg) O2 Sat by Pulse 95 94 Oximetry 06/27/16 06/27/16 06/27/16 03:00 03:43 04:00 Temperature 98.6 F Pulse Rate 69 44 Respiratory 15 19 20 Rate Blood Pressure 165/77 154/58 (mmHg) O2 Sat by Pulse 95 92 Oximetry 06/27/16 06/27/16 06/27/16 04:39 05:00 06:00 Temperature Pulse Rate 33 39 56 Respiratory 15 20 21 Rate Blood Pressure 145/64 153/52 139/66 (mmHg) O2 Sat by Pulse 96 95 94 Oximetry 06/27/16 06/27/16 06/27/16 06:26 07:00 08:00 Temperature 97.6 F Pulse Rate 57 43 Respiratory 19 19 20 Rate Blood Pressure 153/62 166/73 (mmHg) O2 Sat by Pulse 91 96 Oximetry 06/27/16 06/27/16 09:00 10:00 Temperature Pulse Rate 36 47 Respiratory 20 22 Rate Blood Pressure 172/97 176/60 (mmHg) O2 Sat by Pulse 95 94 Oximetry Oxygen Devices in Use Now: Nasal Cannula - at 2 L Appearance: 61 yo M in nAD, aAOx3 Eyes: No Scleral Icterus, PERRLA Ears/Nose/Mouth/Throat: NL Teeth, Lips, Gums, Mucous Membranes Moist Neck: NL Appearance and Movements; NL JVP, Trachea Midline Respiratory: Symmetrical Chest Expansion and Respiratory Effort, - - faint crackles at RLL Cardiovascular: NL Sounds; No Murmurs; No JVD, - - irregular Abdominal: NL Sounds; No Tenderness; No Distention, No Hepatosplenomegaly Lymphatic: No Cervical Adenopathy Extremities: No Clubbing, Cyanosis, - - trace pedeal edema b/l Charcot R foot deformity and R ankle fusion Skin: No Nodules or Sclerosis, - - Ulcers on R foot : stage 2-3 on heel and under 1st MTP- unchanged Neurological: Alert and Oriented x 3, NL Muscle Strength and Tone, - - R ankle fused Result Diagrams: 06/26/16 05:15 06/27/16 05:20 Additional Lab and Data: Lab Results 06/25/16 06/25/16 06/25/16 Range/Units 12:10 12:10 12:10 WBC 12.8 H (3.5-10.8) 10^3/ul RBC 5.02 (4.0-5.4) 10^6/ul Hgb 14.0 (14.0-18.0) g/dl Hct 44 (42-52) % MCV 88 (80-94) fL MCH 28 (27-31) pg MCHC 32 (31-36) g/dl RDW 15 (10.5-15) % Plt Count 192 (150-450) 10^3/ul MPV 9 (7.4-10.4) um3 Neut % (Auto) 81.9 (38-83) % Lymph % (Auto) 6.5 L (25-47) % Manati % (Auto) 8.4 (1-9) % Eos % (Auto) 2.5 (0-6) % Baso % (Auto) 0.7 (0-2) % Absolute Neuts (auto) 10.4 H (1.5-7.7) 10^3/ul Absolute Lymphs (auto) 0.8 L (1.0-4.8) 10^3/ul Absolute Monos (auto) 1.1 H (0-0.8) 10^3/ul Absolute Eos (auto) 0.3 (0-0.6) 10^3/ul Absolute Basos (auto) 0.1 (0-0.2) 10^3/ul Absolute Nucleated RBC 0.03 10^3/ul Nucleated RBC % 0.2 INR (Anticoag Therapy) 0.96 (0.89-1.11) Sodium 134 (133-145) mmol/L Potassium 4.6 (3.5-5.0) mmol/L Chloride 104 (101-111) mmol/L Carbon Dioxide 25 (22-32) mmol/L Anion Gap 5 (2-11) mmol/L BUN 23 (6-24) mg/dL Creatinine 1.23 H (0.67-1.17) mg/dL Est GFR ( Amer) 76.7 (>60) Est GFR (Non-Af Amer) 59.6 (>60) BUN/Creatinine Ratio 18.7 (8-20) Glucose 110 H (70-100) mg/dL Lactic Acid (0.5-2.0) mmol/L Calcium 9.4 (8.6-10.3) mg/dL Total Bilirubin 0.90 (0.2-1.0) mg/dL AST 14 (13-39) U/L ALT 9 (7-52) U/L Alkaline Phosphatase 66 (34-104) U/L Total Creatine Kinase 58 (10-223) U/L Troponin I 0.11 H* (<0.04) ng/mL B-Natriuretic Peptide ( - 100) pg/mL Total Protein 7.2 (6.4-8.9) g/dL Albumin 3.5 (3.2-5.2) g/dL Globulin 3.7 (2-4) g/dL Albumin/Globulin Ratio 0.9 L (1-3) 06/25/16 06/25/16 Range/Units 12:10 12:10 WBC (3.5-10.8) 10^3/ul RBC (4.0-5.4) 10^6/ul Hgb (14.0-18.0) g/dl Hct (42-52) % MCV (80-94) fL MCH (27-31) pg MCHC (31-36) g/dl RDW (10.5-15) % Plt Count (150-450) 10^3/ul MPV (7.4-10.4) um3 Neut % (Auto) (38-83) % Lymph % (Auto) (25-47) % Manati % (Auto) (1-9) % Eos % (Auto) (0-6) % Baso % (Auto) (0-2) % Absolute Neuts (auto) (1.5-7.7) 10^3/ul Absolute Lymphs (auto) (1.0-4.8) 10^3/ul Absolute Monos (auto) (0-0.8) 10^3/ul Absolute Eos (auto) (0-0.6) 10^3/ul Absolute Basos (auto) (0-0.2) 10^3/ul Absolute Nucleated RBC 10^3/ul Nucleated RBC % INR (Anticoag Therapy) (0.89-1.11) Sodium (133-145) mmol/L Potassium (3.5-5.0) mmol/L Chloride (101-111) mmol/L Carbon Dioxide (22-32) mmol/L Anion Gap (2-11) mmol/L BUN (6-24) mg/dL Creatinine (0.67-1.17) mg/dL Est GFR ( Amer) (>60) Est GFR (Non-Af Amer) (>60) BUN/Creatinine Ratio (8-20) Glucose (70-100) mg/dL Lactic Acid 1.5 (0.5-2.0) mmol/L Calcium (8.6-10.3) mg/dL Total Bilirubin (0.2-1.0) mg/dL AST (13-39) U/L ALT (7-52) U/L Alkaline Phosphatase (34-104) U/L Total Creatine Kinase (10-223) U/L Troponin I (<0.04) ng/mL B-Natriuretic Peptide 546 H ( - 100) pg/mL Total Protein (6.4-8.9) g/dL Albumin (3.2-5.2) g/dL Globulin (2-4) g/dL Albumin/Globulin Ratio (1-3) Assess/Plan/Problems-Billing Assessment: 61 yo M with h/o s/p renal transplant, CAD, Mobitz 1 heart block and bradycardia, ischemic cardiomyopathy (EF 45%), CKD, DM, HTN, Charcot foot and R foot chronic wounds presents with bradycardia and CHF - Patient Problems (1) Acute CHF Comment: Systolic, due to a combination of low EF and decreased cardiac output secondary to bradycardia cont Lasix IV- will lower dose to daily today Echo to be done tooday and as per d/w Dr. Hernández on 06/26/16, depending on EF it will be decided if pt needs transfer Cardiology following (2) Bradycardia Comment: Coreg d/c'd at admission HR between 27 and 50 Continues to appear to be occasional Mobitz 2 Cotn Telem in ICU consideration for biventricular pacer ongoing (3) Elevated troponin Comment: " flat" at 0.11-0.1-suspect due to a combination of CKD and demand ischemia from CHF No CP cont ASA coreg held Plavix held due to possible pacer (4) Diabetes Comment: insulin dependent cont Lantus and ISS (5) Leg wound, right Comment: wound care consult not avaliable on weekend cont daily dressings with Ca alginate Not infected, healing (6) Renal insufficiency Comment: s/p renal transplant: cont Cellcept/Prograf/Prednisone Creat improved with diuresis (7) HTN (hypertension) Comment: SBP in 170's, will add another dose of Imdur x 1 today (8) DVT prophylaxis Comment: heparin sc Status and Disposition: inpatient
[2016-06-27] MEDS ORDERED: Isosorbide Mononitrate ER TAB* 30 MG PO ONE (10:26)
[2016-06-27] MEDS ORDERED: Dextrose 50% Syringe 50 ML* 25 GM/50 ML SYRINGE IV PUSH PRN (12:17)
--- NOTE | 2016-06-27 13:48 | ECHO ---
Patient: MING SWIFT [facility] Rec#: [id number] : 1955 Date: 06/27/2016 Age: 61y Height: 190.5 cm / 75.0 in Weight: 120.7 kg / 266.0 lbs Sex: M BSA: 2.48 Room#: ICU 6 Admit Date#: 06/25/2016 Type: Inpatient Referring: Emma Sandy MD Reading: Ramon Hernández MD Agriculture Professor: Alma Mcgee RN RDCS CC: Brendan STUART,Kyler Transthoracic Echocardiogram Indication: CHF, bradycardia BP: 139/66 HR: 39 Rhythm: Heart Block Findings History: CAD, anterior wall AL, coronary stenting, HTN, HLD, DM, former smoker, renal transplant, obesity. Technical Comments: The study is technically limited due to patient body habitus. The study is technically limited due to the patient's smoking history. Completed at 1325. Left Ventricle: The left ventricular chamber size is mildly dilated. Moderate concentric left ventricular hypertrophy is observed. There is a focal wall motion abnormality present. There is mild to moderately decreased left ventricular systolic function. The estimated ejection fraction is 40-45%. Abnormal left ventricular diastolic filling is observed, consistent with impaired relaxation. The mid anterior, apical septal, apical anterior, apical lateral, and apical inferior wall segments are hypokinetic (score 2). Overall wallmotion score index is 2.00 Left Atrium: The left atrial chamber size is normal. Right Ventricle: The right ventricle is mildly dilated. The right ventricular global systolic function is low normal. Right Atrium: The right atrial cavity size is normal. Aortic Valve: The aortic valve is trileaflet. The aortic valve leaflets are mildly thickened. There is no evidence of aortic regurgitation. There is no evidence of aortic stenosis. Mitral Valve: The mitral valve leaflets are mildly thickened. There is trace to mild mitral regurgitation. There is no evidence of mitral stenosis. Tricuspid Valve: The tricuspid valve leaflets are normal. There is trace tricuspid regurgitation. Unable to estimate the right ventricular systolic pressure. Pulmonic Valve: The pulmonic valve appears normal. There is trace to mild pulmonic regurgitation. There is no pulmonic stenosis. Pericardium: There is no significant pericardial effusion. A pericardial fat pad is visualized. Aorta: There is no dilatation of the ascending aorta. There is no dilatation of the aortic arch. There is mild dilatation of the aortic root. Pulmonary Artery: The main pulmonary artery is not well visualized. Venous: The venous system is not well visualized. The inferior vena cava is not visualized. Summary: There are no significant changes when compared to the previous study done on 10/02/14 Conclusions Moderate concentric left ventricular hypertrophy is observed. There is mild to moderately decreased left ventricular systolic function. The estimated ejection fraction is 40-45%. The mid anterior, apical septal, apical anterior, apical lateral, and apical inferior wall segments are hypokinetic (score 2). The right ventricular global systolic function is low normal. The aortic valve leaflets are mildly thickened. There is no evidence of aortic regurgitation. There is trace to mild mitral regurgitation. There is trace tricuspid regurgitation. Unable to estimate the right ventricular systolic pressure. There is no significant pericardial effusion. There are no significant changes when compared to the previous study done on 10/02/14 Measurements Name Value Normal Range RVDdMajor (2D) 4.7 cm (2.2 - 4.4) RAd ISD 4CH 4.6 cm (3.4 - 4.9) RA (A4C)W 3.9 cm (2.9 - 4.6) IVSd (2D) 1.4 cm (0.6 - 1) LVPWd (2D) 1.4 cm (0.6 - 1) LVIDd (2D) 5.8 cm (3.6 - 5.4) LVIDs (2D) 4.5 cm - LV FS (2D) 23 % (25 - 45) Aortic Annulus 2.7 cm (1.4 - 2.6) Ao root diameter (2D) 3.8 cm (2.1 - 3.5) Ascending Ao 3.1 cm (2.1 - 3.4) Aortic arch 2.7 cm (1.8 - 3.4) LA dimension (AP) 2D 3.5 cm (2.3 - 3.8) LAd ISD 4CH 5.1 cm (2.9 - 5.3) LA ISD 4CH W 3.8 cm (2.5 - 4.5) Name Value Normal Range LA ESV SP 4CH (A/L) 44 ml - LA ESV SP 2CH (A/L) 52 ml - LA ESV BP (A/L) 48 ml - LA ESV BP (A/L) index 19.5 ml/m2 - LA ESV SP 4CH (MOD) 41 ml - LA ESV SP 2CH (MOD) 50 ml - Name Value Normal Range MV E-wave Vmax 0.85 m/sec - MV deceleration time 217 msec - MV A-wave Vmax 1.2 m/sec - MV E:A ratio 0.7 ratio - LV septal e' Vmax 0.04 m/sec - LV lateral e' Vmax 0.06 m/sec - LV E:e' septal ratio 21.3 ratio - LV E:e' lateral ratio 14.2 ratio - Name Value Normal Range AV Vmax 1.3 m/sec - AV VTI 35 cm - AV peak gradient 7 mmHg - AV mean gradient 4 mmHg - LVOT Vmax 0.77 m/sec - LVOT VTI 20.3 cm - LVOT peak gradient 2.4 mmHg - LVOT mean gradient 1.2 mmHg - Name Value Normal Range PV Vmax 1.1 m/sec - Wallmotion BAS Not Seen BA Not Seen BAL Not Seen APRIL Not Seen BI Not Seen BIS Not Seen MAS Not Seen MA Hypokinetic MAL Not Seen MIL Not Seen AL Not Seen MIS Not Seen Hypokinetic AA Hypokinetic AL Hypokinetic AI Hypokinetic APEX Akinetic
--- NOTE | 2016-06-27 15:40 | TRS ---
TRANSFER SUMMARY: DATE OF ADMISSION: 06/25/16 DATE OF ANTICIPATED TRANSFER TO [facility]: 06/27/16 PRIMARY CARE DOCTOR: Dr. Levon Cardona. PHYSICIAN RECOMMENDING THE TRANSFER: Dr. Ramon Hernández from Cardiology and Dr. Mccallum from Cardiology. PHYSICIAN ACCEPTING THE TRANSFER: Dr. Ayad Graf from Electrophysiology Department from Cardiology in [facility] in [place], [place]. REASON FOR TRANSFER: Bradycardia with intermittent Mobitz type 2 heart block requiring most likely biventricular pacemaker. PAST MEDICAL HISTORY: 1. History of coronary artery disease, status post cardiac catheterization in 2013 at [facility] and LAD stent. At this point, the patient's EF was 20%. 2. The patient has current ischemic cardiomyopathy with EF approximately 40%. Most current echocardiogram from today is still pending at the time of dictation. 3. History of Mobitz type 1 heart block with sinus bradycardia. 4. History of diabetes under the care of [facility]. 5. History of right Charcot foot deformity with chronic right foot wound. He also had fusion of the right ankle. 6. History of status post kidney transplant in 1996. 7. History of ankle osteomyelitis on the right. 8. Hiatal hernia. 9. Cataract surgery. 10. Septic arthritis of the right ankle. 11. History of diabetic neuropathic arthritis and neuropathy. 12. History of peripheral vascular disease. 13. Diabetic retinopathy. 14. The patient is hard of hearing. 15. Hypertension. 16. BPH with obstruction. The patient self-catheterizes 4 times a day. MEDICATIONS AT THE TIME OF TRANSFER: Include: 1. Aspirin 81 mg daily. 2. Vitamin D3 5000 units daily. 3. Folic acid 1 mg daily. 4. Furosemide 40 mg IV daily. 5. Insulin glargine 35 units q.h.s. 6. Insulin lispro 10 units with each meal. 7. Insulin lispro sliding scale. 8. Imdur 30 mg daily. 9. Latanoprost eye drops 0.05% one drop to both eyes at bedtime. 10. CellCept 1000 mg b.i.d. 11. Pravachol 10 mg daily. 12. Prograf 2.5 mg b.i.d. total. 13. Valsartan 150 mg b.i.d. 14. Prednisone 5 mg daily. LABORATORY DATA AND STUDIES PERFORMED DURING THE HOSPITAL STAY: The patient's transthoracic echocardiogram, I just received the report. It showed moderate concentric LVH with EF of 40% to 45% with mid anterior apical septal and apical anterior and apical lateral and apical inferior wall segment hypokinesis. There were no significant changes comparing with an echo from September 2014. On 06/26/16, white blood cell count of 9.1, hemoglobin of 13.6, hematocrit of 42 , and platelets of 163. Sodium 131, potassium 4.0, chloride 99, carbon dioxide 27, BUN 29, creatinine 1.16. Blood cultures obtained on admission are negative to date of discharge. CONSULTATIONS DURING THE HOSPITAL STAY: Included Dr. Millan and Dr. Hernández from Cardiology. The patient's chest x-ray obtained on admission, impression: "Cardiomegaly with pulmonary interstitial edema." HOSPITALIZATION COURSE: Merline Keith is a 61-year-old male with a history of ischemic cardiomyopathy with EF of 40%, history of Mobitz type 1 heart block, and who had been monitored by Dr. Mccallum for possibility of pacer due to sinus bradycardia. The patient presented acutely on 06/17/16 with shortness of breath and chest x-ray that showed pulmonary edema. He was admitted to the ICU since his heart rate was anywhere between 25 and 55 beats per minute. The patient occasionally would go from Mobitz 1 to Mobitz 2 heart block. The patient was admitted to the intensive care unit and diuresed. Throughout his 2 days of hospital stay, his weight decreased from 256 to 251 pounds and on , he diuresed a total of 3000 mL. Despite that, he still continues to require 2 L of oxygen via nasal cannula to keep his oxygenation above 92. Due to his complicated cardiac history and low EF, Dr. Millan and afterwards Dr. Hernández were consulted in the patient's case. After also discussion with Dr. Mccallum, who is the patient's primary corporate planning manager, it was decided that due to the patient's ischemic cardiomyopathy and low EF, he most likely will require biventricular pacemaker and he should go to a tertiary care center for that. Unfortunately, at our facility, we do not insert biventricular pacemakers. Although the patient's CHF is improved greatly, he still continues to have heart rate between 25 and 55 beats per minute. He is hemodynamically stable, in fact mildly hypertensive after Coreg that was prescribed for him at home was discontinued at admission. For physical exam at the time of discharge, please see daily progress notes. Please note that Dr. Hernández discussed the case with electrophysiology specialist , Dr. Ayad Graf, at [facility] and Dr. Graf accepted the patient for transfer for consideration of biventricular pacemaker. At the time of transfer, the patient is hemodynamically stable. His oxygenation is good on 2 L of oxygen nasal cannula. He is alert and oriented x3 , but slightly hard of hearing. Please note that the patient has chronic Charcot foot deformity and right ankle fusion. He also has chronic wounds on the right foot that is small and healing. Those are 2 areas localized on the plantar area of the right foot, stage II to III. They have been treated with calcium alginate at our facility. Please note that this is a short summary of the patient's hospital stay. Please refer to further medical records for details. TIME SPENT: Approximately 55 minutes were spent on the patient's transfer. CC: Dr. Ayad Graf; Dr. Millan; Dr. Hernández; Dr. Mccallum; Dr. Cardona * [id number]/[facility] #: [id number] [facility]
[2016-06-27] MEDS ORDERED: Insulin LISPRO* 1 UNITS UNIT SUBCUT SCH (16:30)
[2016-06-27] MEDS ORDERED: Insulin GLARGINE(*) 1 UNITS UNIT SUBCUT SCH (17:00)
[2016-06-27] MEDS: Latanoprost 0.005%* 2.5 ml BTL BOTH EYES SCH (21:32)
[2016-06-28] MEDS: Heparin VIAL(*) 5000 UNITS/ML VIAL (FIVE THOUSAND) SUBCUT SCH (05:50)
[2016-06-28] MEDS: Acetaminophen TAB* 325 MG PO PRN (05:50)
[2016-06-28 06:20] LABS: BUN/Creatinine Ratio 27.9 (8-20); Blood Urea Nitrogen 38 mg/dL (6-24); CO2 Carbon Dioxide 27 mmol/L (22-32); Calcium 9.6 mg/dL (8.6-10.3); Chloride 96 mmol/L (101-111); EGFR African American 68.3 (>60); EGFR Non-African American 53.1 (>60); Glucose 114 mg/dL (70-100); Sodium 129 mmol/L (133-145)
--- NOTE | 2016-06-28 08:24 | PN ---
Subjective Date of Service: 06/28/16 Interval History: Pt feels " the same". No SOB, but still on 2 L 02. Objective Active Medications: Acetaminophen (Tylenol Tab*) 650 mg PO Q4H PRN PRN Reason: FEVER/PAIN Last Admin: 06/28/16 05:50 Dose: 650 mg Al Hydrox/Mg Hydrox/Simethicone (Maalox Plus*) 30 ml PO Q6H PRN PRN Reason: INDIGESTION Aspirin (Aspirin Ec Low Dose*) 81 mg PO QAM [facility] Last Admin: 06/27/16 09:01 Dose: 81 mg Brimonidine Tartrate (Alphagan 0.2%) 1 drop BOTH EYES 0900,1700 [facility] Last Admin: 06/27/16 17:14 Dose: 1 drop Cholecalciferol (Vitamin D Tab*) 5,000 units PO DAILY [facility] Last Admin: 06/27/16 09:00 Dose: 5,000 units Dextrose (D50w Syringe 50 Ml*) 12.5 gm IV PUSH .FOR FS < 60 - SS PRN PRN Reason: FS < 60 Folic Acid (Folvite Tab*) 1 mg PO QAM [facility] Last Admin: 06/27/16 09:00 Dose: 1 mg Heparin Sodium (Porcine) (Heparin Vial(*)) 5,000 units SUBCUT Q8HR [facility] Last Admin: 06/28/16 05:50 Dose: 5,000 units Insulin Glargine (Lantus(*)) 45 units SUBCUT Q24H [facility] Last Admin: 06/27/16 17:14 Dose: 45 unit Insulin Human Lispro (Humalog*) 0 units SUBCUT ACHS [facility] PRN Reason: Protocol Last Admin: 06/27/16 21:31 Dose: 12 unit Insulin Human Lispro (Humalog*) 15 units SUBCUT AC [facility] Isosorbide Mononitrate (Imdur Er Tab*) 30 mg PO 0900 [facility] Last Admin: 06/27/16 09:01 Dose: 30 mg Latanoprost (Xalatan 0.005%*) 1 drop BOTH EYES BEDTIME [facility] Last Admin: 06/27/16 21:32 Dose: 1 drop Magnesium Hydroxide (Milk Of Magnesia Liq*) 30 ml PO Q4H PRN PRN Reason: DISCOMFORT Morphine Sulfate (Morphine Inj (Syringe)*) 1 mg IV Q4H PRN PRN Reason: PAIN Mycophenolate Mofetil (Cellcept Tab(*)) 1,000 mg PO BID [facility] Last Admin: 06/27/16 21:31 Dose: 1,000 mg Pravastatin Sodium (Pravachol (Nf)) 10 mg PO DAILY [facility] Last Admin: 06/27/16 09:01 Dose: 10 mg Prednisone (Deltasone Tab*) 5 mg PO QAM [facility] Last Admin: 06/27/16 09:02 Dose: 5 mg Tacrolimus (Prograf Cap(*)) 2 mg PO BID [facility] Last Admin: 06/27/16 21:32 Dose: 2 mg Tacrolimus (Prograf Cap(*)) 0.5 mg PO BID [facility] Last Admin: 06/27/16 21:31 Dose: 0.5 mg Valsartan (Diovan Tab*) 160 mg PO BID [facility] Last Admin: 06/27/16 21:32 Dose: 160 mg Vital Signs 06/27/16 06/27/16 06/27/16 09:00 10:00 11:00 Temperature Pulse Rate 36 47 37 Respiratory 20 22 17 Rate Blood Pressure 172/97 176/60 160/64 (mmHg) O2 Sat by Pulse 95 94 94 Oximetry 06/27/16 06/27/16 06/27/16 12:00 13:00 13:38 Temperature 97.7 F Pulse Rate 54 58 Respiratory 17 20 22 Rate Blood Pressure 163/64 160/82 (mmHg) O2 Sat by Pulse 95 95 Oximetry 06/27/16 06/27/16 06/27/16 14:00 14:10 14:12 Temperature Pulse Rate 42 Respiratory 18 10 24 Rate Blood Pressure 157/60 (mmHg) O2 Sat by Pulse 90 Oximetry 06/27/16 06/27/16 06/27/16 15:00 15:35 15:58 Temperature 97.8 F Pulse Rate 48 Respiratory 23 22 Rate Blood Pressure 156/49 (mmHg) O2 Sat by Pulse 92 Oximetry 06/27/16 06/27/16 06/27/16 16:00 17:00 17:55 Temperature Pulse Rate 37 48 Respiratory 18 19 21 Rate Blood Pressure 152/56 131/57 (mmHg) O2 Sat by Pulse 93 93 Oximetry 06/27/16 06/27/16 06/27/16 18:00 19:00 19:48 Temperature 98.4 F Pulse Rate 64 65 Respiratory 15 21 Rate Blood Pressure 141/70 118/47 (mmHg) O2 Sat by Pulse 93 92 Oximetry 06/27/16 06/27/16 06/27/16 20:00 21:00 22:00 Temperature Pulse Rate 57 48 96 Respiratory 20 22 20 Rate Blood Pressure 131/55 137/64 127/59 (mmHg) O2 Sat by Pulse 93 95 92 Oximetry 06/27/16 06/28/16 06/28/16 23:00 00:00 00:02 Temperature 96.9 F Pulse Rate 44 49 51 Respiratory 22 18 19 Rate Blood Pressure 124/51 (mmHg) O2 Sat by Pulse 93 96 95 Oximetry 06/28/16 06/28/16 06/28/16 00:04 00:08 00:12 Temperature Pulse Rate 44 30 40 Respiratory 21 21 20 Rate Blood Pressure 122/59 (mmHg) O2 Sat by Pulse 96 95 96 Oximetry 06/28/16 06/28/16 06/28/16 01:00 01:06 02:00 Temperature Pulse Rate 55 51 51 Respiratory 21 18 22 Rate Blood Pressure 144/51 125/67 (mmHg) O2 Sat by Pulse 96 95 95 Oximetry 06/28/16 06/28/16 06/28/16 03:00 03:50 04:00 Temperature 98 F Pulse Rate 48 78 Respiratory 21 21 Rate Blood Pressure 137/63 145/66 (mmHg) O2 Sat by Pulse 93 95 Oximetry 06/28/16 06/28/16 06/28/16 05:00 05:59 06:36 Temperature Pulse Rate 44 Respiratory 20 20 20 Rate Blood Pressure 144/74 (mmHg) O2 Sat by Pulse 96 Oximetry 06/28/16 06/28/16 06/28/16 07:00 07:19 08:00 Temperature 97.3 F Pulse Rate 52 63 Respiratory 21 19 Rate Blood Pressure 152/64 (mmHg) O2 Sat by Pulse 97 96 Oximetry Oxygen Devices in Use Now: Nasal Cannula - at 2 L Appearance: 61 yo F in NAD, AAOx3 Eyes: No Scleral Icterus, PERRLA Ears/Nose/Mouth/Throat: NL Teeth, Lips, Gums, Mucous Membranes Moist Neck: NL Appearance and Movements; NL JVP, Trachea Midline Respiratory: Symmetrical Chest Expansion and Respiratory Effort, Clear to Auscultation Cardiovascular: NL Sounds; No Murmurs; No JVD, - - irregular Abdominal: NL Sounds; No Tenderness; No Distention, No Hepatosplenomegaly Lymphatic: No Cervical Adenopathy Extremities: No Clubbing, Cyanosis, - - trace pedal edema b/l, Charcot foot deformity on R. R foot wounds unchanged Neurological: Alert and Oriented x 3, NL Muscle Strength and Tone, - - R ankle fusion Result Diagrams: 06/26/16 05:15 06/28/16 06:50 Additional Lab and Data: Lab Results 06/25/16 06/25/16 06/25/16 Range/Units 12:10 12:10 12:10 WBC 12.8 H (3.5-10.8) 10^3/ul RBC 5.02 (4.0-5.4) 10^6/ul Hgb 14.0 (14.0-18.0) g/dl Hct 44 (42-52) % MCV 88 (80-94) fL MCH 28 (27-31) pg MCHC 32 (31-36) g/dl RDW 15 (10.5-15) % Plt Count 192 (150-450) 10^3/ul MPV 9 (7.4-10.4) um3 Neut % (Auto) 81.9 (38-83) % Lymph % (Auto) 6.5 L (25-47) % Bulloch % (Auto) 8.4 (1-9) % Eos % (Auto) 2.5 (0-6) % Baso % (Auto) 0.7 (0-2) % Absolute Neuts (auto) 10.4 H (1.5-7.7) 10^3/ul Absolute Lymphs (auto) 0.8 L (1.0-4.8) 10^3/ul Absolute Monos (auto) 1.1 H (0-0.8) 10^3/ul Absolute Eos (auto) 0.3 (0-0.6) 10^3/ul Absolute Basos (auto) 0.1 (0-0.2) 10^3/ul Absolute Nucleated RBC 0.03 10^3/ul Nucleated RBC % 0.2 INR (Anticoag Therapy) 0.96 (0.89-1.11) Sodium 134 (133-145) mmol/L Potassium 4.6 (3.5-5.0) mmol/L Chloride 104 (101-111) mmol/L Carbon Dioxide 25 (22-32) mmol/L Anion Gap 5 (2-11) mmol/L BUN 23 (6-24) mg/dL Creatinine 1.23 H (0.67-1.17) mg/dL Est GFR ( Amer) 76.7 (>60) Est GFR (Non-Af Amer) 59.6 (>60) BUN/Creatinine Ratio 18.7 (8-20) Glucose 110 H (70-100) mg/dL Lactic Acid (0.5-2.0) mmol/L Calcium 9.4 (8.6-10.3) mg/dL Total Bilirubin 0.90 (0.2-1.0) mg/dL AST 14 (13-39) U/L ALT 9 (7-52) U/L Alkaline Phosphatase 66 (34-104) U/L Total Creatine Kinase 58 (10-223) U/L Troponin I 0.11 H* (<0.04) ng/mL B-Natriuretic Peptide ( - 100) pg/mL Total Protein 7.2 (6.4-8.9) g/dL Albumin 3.5 (3.2-5.2) g/dL Globulin 3.7 (2-4) g/dL Albumin/Globulin Ratio 0.9 L (1-3) 06/25/16 06/25/16 Range/Units 12:10 12:10 WBC (3.5-10.8) 10^3/ul RBC (4.0-5.4) 10^6/ul Hgb (14.0-18.0) g/dl Hct (42-52) % MCV (80-94) fL MCH (27-31) pg MCHC (31-36) g/dl RDW (10.5-15) % Plt Count (150-450) 10^3/ul MPV (7.4-10.4) um3 Neut % (Auto) (38-83) % Lymph % (Auto) (25-47) % Bulloch % (Auto) (1-9) % Eos % (Auto) (0-6) % Baso % (Auto) (0-2) % Absolute Neuts (auto) (1.5-7.7) 10^3/ul Absolute Lymphs (auto) (1.0-4.8) 10^3/ul Absolute Monos (auto) (0-0.8) 10^3/ul Absolute Eos (auto) (0-0.6) 10^3/ul Absolute Basos (auto) (0-0.2) 10^3/ul Absolute Nucleated RBC 10^3/ul Nucleated RBC % INR (Anticoag Therapy) (0.89-1.11) Sodium (133-145) mmol/L Potassium (3.5-5.0) mmol/L Chloride (101-111) mmol/L Carbon Dioxide (22-32) mmol/L Anion Gap (2-11) mmol/L BUN (6-24) mg/dL Creatinine (0.67-1.17) mg/dL Est GFR ( Amer) (>60) Est GFR (Non-Af Amer) (>60) BUN/Creatinine Ratio (8-20) Glucose (70-100) mg/dL Lactic Acid 1.5 (0.5-2.0) mmol/L Calcium (8.6-10.3) mg/dL Total Bilirubin (0.2-1.0) mg/dL AST (13-39) U/L ALT (7-52) U/L Alkaline Phosphatase (34-104) U/L Total Creatine Kinase (10-223) U/L Troponin I (<0.04) ng/mL B-Natriuretic Peptide 546 H ( - 100) pg/mL Total Protein (6.4-8.9) g/dL Albumin (3.2-5.2) g/dL Globulin (2-4) g/dL Albumin/Globulin Ratio (1-3) Assess/Plan/Problems-Billing Assessment: 61 yo M with h/o s/p renal transplant, CAD, Mobitz 1 heart block and bradycardia, ischemic cardiomyopathy (EF 45%), CKD, DM, HTN, Charcot foot and R foot chronic wounds presents with bradycardia and CHF - Patient Problems (1) Acute CHF Comment: Systolic, due to a combination of low EF and decreased cardiac output secondary to bradycardia Holding Lasix today due to increase in creatinine Echo shows EF 40%, pt's transfer for biventricular pacer to [facility]. Pt was accepted by green building design specialist Dr. Graf, awaiting bed. Cardiology following (2) Bradycardia Comment: Coreg d/c'd at admission HR between 27 and 50 Continues to appear to be occasional Mobitz 2 Cont Telem in ICU transfer for biventricular pacer to [facility] (3) Elevated troponin Comment: " flat" at 0.11-0.1-suspect due to a combination of CKD and demand ischemia from CHF No CP cont ASA coreg held Plavix held due to possible pacer (4) Diabetes Comment: insulin dependent cont Lantus and ISS and Lispro AC (5) Leg wound, right Comment: wound care consult not avaliable on weekend cont daily dressings with Ca alginate Not infected, healing (6) Renal insufficiency Comment: s/p renal transplant: cont Cellcept/Prograf/Prednisone Creat worse after diuresis. Stop Lasix, monitor renal function (7) HTN (hypertension) Comment: fair control, monitor (8) DVT prophylaxis Comment: heparin sc Status and Disposition: inpatient Awaiting transfer to [facility]
[2016-06-28] MEDS: Cholecalciferol TAB* 1000 UNITS PO SCH (09:10)
[2016-06-28] MEDS: Tacrolimus CAP(*) 1 MG PO SCH (09:10)
[2016-06-28] MEDS: Isosorbide Mononitrate ER TAB* 30 MG PO SCH (09:10)
[2016-06-28] MEDS: Valsartan TAB* 80 MG PO SCH (09:11)
[2016-06-28] MEDS: Aspirin EC Low Dose* 81 MG TAB.EC PO SCH (09:11)
[2016-06-28] MEDS: predniSONE TAB* 5 MG PO SCH (09:11)
[2016-06-28] MEDS: Mycophenolate Mofetil TAB(*) 500 MG PO SCH (09:11)
[2016-06-28] MEDS: Folic Acid TAB* 1 MG PO SCH (09:11)
[2016-06-28] MEDS: Tacrolimus CAP(*) 0.5 MG PO SCH (09:12)
[2016-06-28] MEDS: Insulin LISPRO* 1 UNITS UNIT SUBCUT SCH ×4 (09:12→11:30)
[2016-06-28] MEDS: CMC: Pravastatin (NF) 20 MG TAB PO SCH (09:37)
[2016-06-28 11:12] VITALS: BP 156/81
[2016-06-28] MEDS ORDERED: PROCHLORPERAZINE INJ 5 MG/ML 2 ML VIAL IV PRN (11:30)
[2016-06-28] MEDS ORDERED: PROCHLORPERAZINE INJ 5 MG/ML 2 ML VIAL ONE (11:34)
== END 2016-06-28 12:00 | disposition short-term general hospital (02) | DRG 308 ==
LOC: ED 10:05 → ICU 14:58
PROVIDERS: ADMIT Internal Medicine; ATTEND Internal Medicine
DX: I44.1 Atrioventricular block, second degree (principal); I50.21 Acute systolic (congestive) heart failure; E11.22 Type 2 diabetes mellitus with diabetic chronic kidney disease; E11.40 Type 2 diabetes mellitus with diabetic neuropathy, unspecified; I13.0 Hypertensive heart and chronic kidney disease with heart failure and stage 1 through stage 4 chronic kidney disease, or unspecified chronic kidney disease; N13.8 Other obstructive and reflux uropathy; Z94.0 Kidney transplant status; E11.610 Type 2 diabetes mellitus with diabetic neuropathic arthropathy; N18.9 Chronic kidney disease, unspecified; R00.1 Bradycardia, unspecified; I25.10 Atherosclerotic heart disease of native coronary artery without angina pectoris; E11.319 Type 2 diabetes mellitus with unspecified diabetic retinopathy without macular edema; E11.51 Type 2 diabetes mellitus with diabetic peripheral angiopathy without gangrene; I25.5 Ischemic cardiomyopathy; K44.9 Diaphragmatic hernia without obstruction or gangrene; N40.1 Benign prostatic hyperplasia with lower urinary tract symptoms; E11.621 Type 2 diabetes mellitus with foot ulcer; L97.512 Non-pressure chronic ulcer of other part of right foot with fat layer exposed; R09.02 Hypoxemia; I25.2 Old myocardial infarction; Z79.82 Long term (current) use of aspirin; Z95.5 Presence of coronary angioplasty implant and graft; Z79.4 Long term (current) use of insulin; Z79.52 Long term (current) use of systemic steroids; Z79.899 Other long term (current) drug therapy; Z82.49 Family history of ischemic heart disease and other diseases of the circulatory system; Z87.891 Personal history of nicotine dependence; E66.9 Obesity, unspecified; Z68.31 Body mass index [BMI] 31.0-31.9, adult
CPT/HCPCS: 36415; 71020; 80048; 80053; 82550; 82947; 83605; 83880; 84443; 84484; 85025; 85610; 87040; 93005; 93306; 94760; A9270-GY; J0780; J1644; J1940; J7507; J7512

== ENCOUNTER 2016-09-08 08:18 | Observation (INO) | payer MEDICARE ==
[2016-09-08 09:25] LABS: Hematocrit 47 % (42-52); Mean Corpuscular HGB Conc 32 g/dl (31-36); Mean Corpuscular Hemoglobin 29 pg (27-31); Mean Corpuscular Volume 90 fL (80-94); Mean Platelet Volume 9 um3 (7.4-10.4); Red Blood Count 5.21 10^6/ul (4.0-5.4); Red Cell Distribution Width 14 % (10.5-15); White Blood Count 9.7 10^3/ul (3.5-10.8)
[2016-09-08] MEDS ORDERED: Diazepam TAB(*) 5 MG ONE (09:35)
[2016-09-08] MEDS ORDERED: diPHENhydraMINE PO* 25 MG ONE (09:36)
[2016-09-08] MEDS ORDERED: Heparin 2 UNITS/ML IVPREMIX* 2,000 ML IV ONE (09:37)
[2016-09-08] MEDS ORDERED: Lidocaine 1% INJ* 10 MG/ML 30 ML SDV ONE (09:37)
[2016-09-08 09:39] LABS: BUN/Creatinine Ratio 19.5 (8-20); Calcium 9.3 mg/dL (8.6-10.3); EGFR African American 80.4 (>60); EGFR Non-African American 62.6 (>60); Potassium 4.4 mmol/L (3.5-5.0)
[2016-09-08] MEDS ORDERED: Iodixanol* (CONTRAST) 320 MG/ML 100 ML SDV ONE ×2 (09:45→10:33)
[2016-09-08] MEDS ORDERED: nitroGLYCERIN DRIP* 250 ML ONE (10:32)
[2016-09-08] MEDS ORDERED: Al Hydrox/Mg Hydrox/Simet LIQ* 30 ML UDC ONE (10:34)
[2016-09-08] MEDS ORDERED: Clopidogrel TAB* 75 MG ONE (10:34)
[2016-09-08] MEDS ORDERED: Heparin 2 UNITS/ML IVPREMIX* 1,000 ML IV ONE ×2 (10:35→11:08)
[2016-09-08] MEDS ORDERED: Bivalirudin(*) 250 MG VIAL ONE ×2 (10:38→10:39)
[2016-09-08] MEDS ORDERED: Atropine SYRINGE* 0.1 MG/ML 10 ML SYRINGE (1 MG) ONE ×2 (11:22→15:08)
[2016-09-08] MEDS ORDERED: Acetaminophen TAB* 325 MG PO PRN (11:33)
[2016-09-08] MEDS ORDERED: Nitroglycerin TAB 0.4 MG* 0.4 MG TAB SL PRN (11:33)
[2016-09-08] MEDS ORDERED: Docusate CAP* 100 MG PO PRN (11:33)
[2016-09-08] MEDS ORDERED: oxyCODONE/Acetamin 5/325 MG* TAB PO PRN (11:33)
[2016-09-08] MEDS ORDERED: fentaNYL* 50 MCG/ML 2 ML VIAL (100 MCG VIAL) IV PRN (11:33)
[2016-09-08] MEDS ORDERED: NS 0.9% 1000 ML* 1,000 ML IV SCH (11:45)
[2016-09-08] MEDS: Sulfamethox/Trimethoprim DS 800/160* TAB PO SCH ×2 (12:33→20:59)
[2016-09-08] MEDS: Insulin LISPRO* 1 UNITS UNIT SUBCUT SCH ×2 (17:31→19:56)
[2016-09-08] MEDS: Famotidine TAB* 20 MG PO SCH (20:57)
[2016-09-08] MEDS: Mycophenolate Mofetil TAB(*) 500 MG PO SCH (20:58)
[2016-09-08] MEDS: Tacrolimus CAP(*) 0.5 MG PO SCH (20:59)
[2016-09-08] MEDS: Tacrolimus CAP(*) 1 MG PO SCH (20:59)
[2016-09-08] MEDS ORDERED: Insulin GLARGINE(*) 1 UNITS UNIT SUBCUT SCH (21:00)
[2016-09-08] MEDS ORDERED: Latanoprost 0.005%* 2.5 ml BTL BOTH EYES SCH (21:00)
[2016-09-08] MEDS: Valsartan TAB* 80 MG PO SCH (21:00)
--- NOTE | 2016-09-08 21:38 | CONS ---
MEDICAL CONSULTATION: DATE OF CONSULT/DICTATION: 09/08/16 REQUESTING PROVIDER: Dr. Malcolm Mccallum. PRIMARY CARE PROVIDER: Dr. Roman Winter. WIRELESS SALES REPRESENTATIVE: Dr. Toribio. CONSULTING PROVIDER: ABDELRAHMAN Barboza SUPERVISING PHYSICIAN: Zach Horton MD REASON FOR CONSULT: Medical comanagement, specifically diabetes management, status post coronary catheterization. HISTORY OF PRESENT ILLNESS: This is a 61-year-old gentleman with a complicated medical history including coronary artery disease with associated ischemic cardiomyopathy, insulin dependent diabetes, history of renal transplant, diabetic neuropathy with Charcot foot deformity on the right, peripheral vascular disease, diabetic retinopathy, hypertension, BPH for which she self catheterizes 4 times daily, and a stage 2 chronic kidney disease, who underwent coronary catheterization with Dr. Mccallum today following a grossly abnormal nuclear stress test, completed on an outpatient setting. The patient had a stent placed in RCA and was transferred to ICU following the procedure. Hospitalist group has been asked to help with medical co-management and specifically diabetes care. The patient reports that his diabetes is well managed and actually improved since receiving his pacemaker. He states that his average fasting blood glucose is between 90 and 120 mg/dL. He uses 58 units of Tresiba each morning, which is a 100 unit/mL concentration solution and then Humalog on a sliding scale basis with meals. It sounds like the majority of the time, he just uses Humalog with dinner time and then provides additional coverage if he is having a high carbohydrate meal. He states that he has 2 ulcers on his right foot for which he has been under the care of [facility] out of [place] in the past. PAST MEDICAL HISTORY: 1. Coronary artery disease with associated ischemic cardiomyopathy. Last EF measured at approximately 30%. Now status post right RCA stenting. 2. Insulin dependent diabetes. 3. Renal transplant in 1996, maintained on mycophenolate, tacrolimus and daily prednisone therapy. 4. Diabetic neuropathy. 5. Peripheral vascular disease. 6. Retinopathy. 7. Hypertension. 8. BPH, which requires self catheterization 4 times daily. 9. Stage 2 chronic kidney disease. 10. Right Charcot foot deformity with 2 diabetic ulcers. PAST SURGICAL HISTORY: 1. Pacemaker placement. 2. Right ankle fusion. 3. Renal transplant. 4. Cataract extraction. HOME MEDICATIONS: 1. Aspirin 81 mg p.o. daily. 2. Alphagan eye drops 1 drop in both eyes twice daily. 3. Vitamin D3 5000 units p.o. daily. 4. Plavix 75 mg p.o. daily. 5. Folic acid 1 mg p.o. daily. 6. Lasix 20 mg alternating with 40 mg daily. 7. Humalog on a sliding scale with meals. 8. Tresiba FlexTouch 58 units subcu at bedtime. 9. Isosorbide mononitrate 30 mg p.o. daily. 10. Xalatan 0.005% solution 1 drop in both eyes at bedtime. 11. Magnesium oxide 250 mg p.o. daily. 12. Metoprolol succinate 37.5 mg p.o. daily. 13. Mycophenolate 1000 mg p.o. twice daily. 14. Pravastatin 10 mg p.o. daily. 15. Ranitidine 150 mg p.o. twice daily. 16. Kayexalate twice daily. 17. Tacrolimus a total of 2.5 mg p.o. twice daily. 18. Flomax 0.4 mg p.o. daily. 19. Valsartan 160 mg p.o. twice daily. 20. Prednisone 5 mg p.o. daily. SOCIAL HISTORY: The patient lives at home with his . REVIEW OF SYSTEMS: The patient denies chest pain, shortness of breath, abdominal pain, nausea, vomiting, fever or chills. PHYSICAL EXAM: Most recent vitals: Temp 98.0 degrees Fahrenheit, pulse 61 beats per minute, respiratory rate 19, oxygen saturation 93% with 2 L via nasal cannula. General: This is a pleasant 61-year-old gentleman who appears mildly lethargic and is accompanied by his in an ICU bed postprocedure. HEENT: Head is normocephalic, atraumatic. Cardiovascular: Heart has a regular rate and rhythm without murmurs, rubs or gallops. Respiratory: Lungs are clear to auscultation without wheezes, crackles or rhonchi. Abdomen: Abdomen is soft, and nontender to palpation. Extremities: The patient has right Charcot foot deformity, 2 ulcers, one over the medial aspect of the first metatarsal head and one over the plantar aspect of the calcaneus, neither has surrounding erythema or significant drainage and seemed to have some healing around the ulcer margins. Skin: Limited exam shows no concerning rashes or lesions. DIAGNOSTIC STUDIES/LAB DATA: CBC shows a white blood cell count of 9700, hemoglobin 15 g/dL, platelet count of 202,000, INR of 1.02, PTT 31.9. Basic metabolic panel: Sodium of 134 mmol/L, potassium 4.4, serum bicarb 26, BUN 23, creatinine 1.18. Random glucose of 168 mg/dL. IMAGING: EKG shows a dual paced rhythm. ASSESSMENT AND PLAN: This is a 61-year-old gentleman with a complicated medical history including coronary artery disease with associated ischemic cardiomyopathy, now status post right coronary artery stenting by Dr. Mccallum earlier today as well as insulin-dependent diabetes, renal transplant, diabetic neuropathy with associated right Charcot foot deformity and associated foot ulcers as well as peripheral vascular disease, retinopathy, hypertension, benign prostatic hypertrophy requiring self catheterization and stage [address] Mccallum has requested medical consultation from hospitalist group for diabetes management. 1. Status post cardiac catheterization with right coronary artery stenting - postprocedure management per Interventional Cardiology. The patient appears to be asymptomatic at this time. 2. Insulin dependent diabetes - from the patient's description, his diabetes appears to be well managed. We will try to reproduce his home regimen and exchange his Tresiba for Lantus and provide sliding scale Humalog coverage with meal times. 3. Diabetic retinopathy and neuropathy with right Charcot foot deformity and 2 diabetic ulcers - ulcers do not appear to be secondarily infected. 4. Peripheral vascular disease. 5. Benign prostatic hypertrophy requiring self catheterization - the patient will require 4 times daily self catheterization and Dr. Mccallum has started Bactrim as a prophylactic therapy to be given prior to time of catheterization. 6. Hypertension. 7. Code status. The patient is full code. 8. Healthcare proxy is his . 9. DVT prophylaxis, per Cardiology. 10. Disposition: Per Cardiology. Hospitalist Group will continue to follow along during his hospital stay. ABDELRAHMAN BARBOZA [id number]/[facility] #: [id number] MTDVivienne
--- NOTE | 2016-09-09 02:51 | CATH ---
CC: Dr. Cardona CARDIAC CATHETERIZATION INTERVENTIONAL REPORT: DATE OF PROCEDURE: 09/08/16 INDICATIONS FOR PROCEDURE: The patient with a grossly abnormal recent nuclear stress test with significant left ventricular systolic dysfunction, EF reported at 27% with large contiguous defects to the anterior septal and inferior wall with potential ischemia to the inferior inferolateral region. PROCEDURE: Coronary arteriography, left heart catheterization, primary stenting of the mid right coronary artery utilizing a 2.75 x 20 mm long Synergy drug-eluting stent postdilated to 2.8 to 2.85 mm high pressure balloon inflation. PROCEDURE IN DETAIL: The patient was interviewed and examined in the office where the risks and benefits were explained, he understood them and wished to proceed. He was brought to the cardiovascular laboratory on the day of the catheterization where a formal formal time-out was performed. The patient was prepped and draped in a sterile fashion. The right groin area was anesthetized with 1% lidocaine, the right femoral artery was cannulated and a 5-Sammarinese sheath was placed. Coronary arteriography was performed utilizing a 5-Sammarinese 4 Trinity left coronary catheter and a 5-Sammarinese 4 Trinity right coronary catheter. Following this, the decision was made to intervene into the critically stenosed mid right coronary artery. The patient received an Angiomax bolus and Angiomax drip was started. He received 150 mg additional clopidogrel as he has been on it chronically. He had already received his aspirin dosage today and he has been on that chronically. Guiding views were obtained utilizing a 6-Sammarinese ART4 curve guide catheter with side holes. The existing 5-Sammarinese sheath was exchanged for a 6.5-Sammarinese Merit Prelude sheath. Guiding views were obtained and a Scaladourai guidewire was advanced down the right coronary artery through the critical blockage into the distal portion. Primary stenting was performed utilizing a 2.75 x 20 mm long Synergy drug-eluting stent with post-deployment dilatations made with an NC Emerge 2.75 x 12 mm to high pressures. Following this, the artery was assessed with the wire in place and wire removed. Central aortic pressure was then recorded using a 5-Sammarinese angle pigtail catheter advanced to the ascending aorta where central aortic pressure was recorded. The catheter was then passed towards the aortic valve into the left ventricle, where left ventricular pressure was recorded. Left ventriculography was deferred in light of trying to avoid excessive dye utilization given his renal transplant. The catheter was then pulled back across the aortic valve to recheck gradient. Following this, the sheath was sutured in place and the sheath will be removed in the intensive care unit with manual pressure. The patient tolerated the procedure well. The total contrast used was 170 cc of Visipaque dye. The radiation exposure included 10.8 minutes of fluoro time. The air kerma radiation was 1415 milligray. The DAP radiation was 8587 microgray per meter square. RESULTS: HEMODYNAMIC DATA: Left heart catheterization - Revealed a central aortic pressure at 121/60 with a mean of 85, left ventricular pressure 120/left ventricular end diastolic pressure of 16 to 18 mmHg. CORONARY ARTERIOGRAPHY: A. Left coronary artery: 1. Left main - there was minimal tapering of the distal left main area with a 10% narrowing. 2. Left anterior descending artery - the most proximal portion of the left anterior descending artery was the area that was stented prior, there is no evidence of in-stent restenosis to this area. In the proximal to mid segment , the artery divided into a very thin, what appears to be almost a large septal woodworking machine offbearer versus the LAD intramyocardial supplying several septal perforators just past this, with continuation of the LAD, which had thin diagonal branches off it. There was moderate narrowing of 50% to 55% in this area. 3. Circumflex artery - a nondominant vessel supplying a thin first obtuse marginal branch and a thin second obtuse marginal branch. There was 45% to 50% stenosis appearing eccentric in nature. Past the third obtuse marginal branch and just at or after the fourth obtuse marginal branch was a hazy area with moderate diffuse disease with an area of 55% to 60% proximal stenosis, eccentric in nature. The fourth obtuse marginal branch had diffuse disease in its mid segment with narrowing as much as 60%, the caliber of the vessel borderline for any type of intervention. Collateral blood flow was seen from the distal circumflex to the posterior LV branch of the right coronary artery. There was also collateral blood flow seen from the LAD septal woodworking machine offbearer to the distal portion of the PDA of the right coronary artery. B. Right coronary artery: A dominant vessel with a moderate acute marginal branch low lying in nature, which supplied the mid to distal inferior wall. There was total occlusion known from prior films of a thin posterior descending artery. The vessel had KARIN 1 to 2 flow at best and had tapering of the vessel with a critical 99% stenosis seen in its mid to distal area, just turning on to the inferior surface of the heart. There were several thin thread-like acute marginal branches with diffuse critical disease seen on the right ventricular surface. The distal most portion of the right coronary artery supplied a very short vessel that paralleled the posterior descending artery. It was diffusely narrowed and short in nature. INTERVENTION INTO MID RIGHT CORONARY ARTERY: - successful reduction of critical 99% obstruction with primary stenting utilizing 2.75 x 20 mm long Synergy drug-eluting stent postdilated to 2.8 to 2.85 mm with KARIN-3 flow, no dissection seen and 0% residual stenosis. OVERALL ASSESSMENT: Significant multivessel disease involving the mid LAD after takeoff of a large-appearing long septal woodworking machine offbearer with areas of 45% to 50% stenosis with 55 % to 60% stenosis in the proximal circumflex, and significant disease in the fourth obtuse marginal branch, a small caliber vessel, right coronary artery with critical disease of 99% obstruction in its mid to distal portion, successfully treated with primary stenting. Of note, the patient still does have what appears to be a totally occluded posterior descending artery at some point being retrograde filled to its most distal area through the LAD septal perforators and a bifurcating posterior LV branch of the right coronary artery filled retrograde fashion from the circumflex artery. Aggressive medical management will continue with aggressive statin therapy as well as MAGDA inhibition and beta sofía therapy and diuretic therapy for LV dysfunction. Consideration toward reassessing the circumflex disease in its proximal portion , which with the potential for FFR analysis will be decided at a later point. [id number]/[facility] #: [id number] [facility]
[2016-09-09 04:56] LABS: Hematocrit 48 % (42-52); Hemoglobin 15.3 g/dl (14.0-18.0); Mean Corpuscular HGB Conc 32 g/dl (31-36); Mean Corpuscular Hemoglobin 29 pg (27-31); Mean Corpuscular Volume 90 fL (80-94); Mean Platelet Volume 9 um3 (7.4-10.4); Red Blood Count 5.33 10^6/ul (4.0-5.4); Red Cell Distribution Width 14 % (10.5-15); White Blood Count 9.5 10^3/ul (3.5-10.8)
[2016-09-09 04:58] LABS: Add Diff/Slide Review? Slide Review Added; Comments Flag Yes
[2016-09-09 05:07] LABS: Albumin 3.1 g/dL (3.2-5.2); Calcium 9.1 mg/dL (8.6-10.3); EGFR Non-African American 70.8 (>60); Globulin 3.7 g/dL (2-4); Potassium 4.4 mmol/L (3.5-5.0); Total Protein 6.8 g/dL (6.4-8.9)
[2016-09-09 08:29] LABS: Magnesium 1.8 mg/dL (1.9-2.7)
[2016-09-09] MEDS: Insulin LISPRO* 1 UNITS UNIT SUBCUT SCH ×2 (08:53→13:18)
[2016-09-09] MEDS ORDERED: Magnesium Oxide TAB* 400 MG PO SCH (09:00)
[2016-09-09] MEDS ORDERED: Isosorbide Mononitrate ER TAB* 30 MG PO SCH (09:00)
[2016-09-09] MEDS ORDERED: Aspirin EC Low Dose* 81 MG TAB.EC PO SCH (09:00)
[2016-09-09] MEDS ORDERED: Cholecalciferol TAB* 1000 UNITS PO SCH (09:00)
[2016-09-09] MEDS ORDERED: Furosemide TAB* 20 MG PO SCH (09:00)
[2016-09-09] MEDS ORDERED: Clopidogrel TAB* 75 MG PO SCH (09:00)
[2016-09-09] MEDS ORDERED: Metoprolol Succinate XL TAB* 25 MG PO SCH (09:00)
[2016-09-09] MEDS ORDERED: CMC:Pravastatin (NF) 20 MG TAB PO SCH (09:00)
[2016-09-09] MEDS ORDERED: predniSONE TAB* 5 MG PO SCH (09:00)
[2016-09-09] MEDS ORDERED: Tamsulosin CAP* 0.4 MG PO SCH (09:00)
[2016-09-09] MEDS: Sulfamethox/Trimethoprim DS 800/160* TAB PO SCH (09:10)
[2016-09-09] MEDS: Famotidine TAB* 20 MG PO SCH (09:10)
[2016-09-09] MEDS: Mycophenolate Mofetil TAB(*) 500 MG PO SCH (09:29)
[2016-09-09] MEDS: Valsartan TAB* 80 MG PO SCH (09:29)
[2016-09-09] MEDS: Tacrolimus CAP(*) 1 MG PO SCH (09:29)
[2016-09-09] MEDS: Tacrolimus CAP(*) 0.5 MG PO SCH (09:30)
--- NOTE | 2016-09-09 11:02 | RAD ---
Indication: Evaluate for pneumonia. 2 views the chest including dual energy PA views demonstrates cardiomegaly. Interstitial edema consistent with CHF is noted. No alveolar consolidation is noted. Pacemaker leads are in place. IMPRESSION: Cardiomegaly with interstitial edema consistent with CHF.
[2016-09-09 14:42] VITALS: BP 117/66
--- NOTE | 2016-09-09 19:09 | CONS ---
PULMONARY CONSULTATION REPORT: DATE OF CONSULT: 09/09/16 CONSULTATION REQUESTED BY: Dr. Malcolm Mccallum. REASON FOR CONSULT: Evaluation of abnormal chest x-ray. HISTORY OF PRESENT ILLNESS: The patient is a 61-year-old morbidly obese male with history of ischemic cardiomyopathy, coronary artery disease, Mobitz type I heart block, who presents for elective cardiac catheterization and had drug- eluting stent placement of LAD. The patient had a chest x-ray performed during current hospitalization, which revealed evidence of interstitial opacities. I have personally reviewed chest x-ray in comparison with the prior chest x-rays. The patient does appear to have prominence of interstitium with predominance centrally and with cephalization suggestive of possible CHF. The patient's prior chest x- rays would also reveal the similar abnormality. He does, however , have a normal- appearing chest x-ray in between. Pulmonary consultation was requested for evaluation of this noted chest x-ray abnormality. The patient has chronic dyspnea on exertion and mild intermittent cough, which he attributes to his heart issues. The patient has history of congestive heart failure. His BNP is elevated on current admission. The patient has received additional doses of diuretics. The patient also has chronic kidney disease and is needing renal replacement therapy. He had a kidney transplant in the past. The patient has chronic lower extremity swelling. The patient also has diabetes , sugars controlled at home as per the patient. The patient's at bedside also reports snoring at night, gasping arousals, disruptive sleep. The patient also reports daytime fatigue. He had history of hypoxemia at rest and with exertion. Currently, he is on room air and his O2 sats have been around 95%-96 % at the time of interview. 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 The patient denies prior lung history. He also was a former smoker with [id number] smoking history, quit 20 years ago. He is being discharged home after the catheterization. PAST MEDICAL HISTORY: 1. Coronary artery disease, status post cath in 2013 and again in 2017 during current admission. 2. He has history of non-ST elevation OR, was transferred to [facility] for high-grade risk intervention and had stent placement in LAD. He also has history of ischemic cardiomyopathy with EF at the time of OR of about 20%. 3. Mobitz type I heart block and sinus bradycardia. 4. Possible diastolic CHF. 5. Diabetes. 6. Charcot deformity with chronic right foot wounds. 7. Kidney transplant in 1996. 8. Status post ankle fusion on the right. 9. Ankle osteomyelitis on the right. 10. Hiatal hernia. 11. Cataract surgery. 12. Septic arthritis of right ankle. 13. Diabetic neuropathic arthritis and neuropathy. 14. Peripheral vascular disease. 15. Diabetic retinopathy. 16. The patient is hard of hearing, uses hearing aids. 17. Hypertension. 18. BPH without obstruction and the patient self-catheterizes 4 times a day. OUTPATIENT MEDICATIONS: 1. Tacrolimus 2 mg b.i.d. and 0.5 mg p.o. b.i.d. as needed. 2. Flomax 0.4 mg daily. 3. Diovan 160 mg b.i.d. 4. Prednisone 5 mg q.a.m. 5. Bactrim 1 tablet p.o. b.i.d. 6. Kayexalate 1 packet p.o. b.i.d. 7. Zantac 150 mg b.i.d. 8. Pravachol 10 mg daily. 9. Nitroglycerin 0.4 mg sublingual q.5 minutes as needed. 10. CellCept 1 g b.i.d. 11. Metoprolol 25 mg daily. 12. Magnesium 250 mg in the morning. 13. Xalatan 1 drop in both eyes at bedtime. 14. Imdur 30 mg daily. 15. Insulin 58 units at bedtime. 16. FlexPen NovoLog 1 unit subcutaneously t.i.d. with meals. 17. Furosemide 40 mg every other day and 20 mg every other day. 18. Folic acid 1 mg p.o. q.a.m. 19. Plavix 75 mg p.o. q.a.m. 20. Vitamin D3. 21. Alphagan eye drops. 22. Aspirin 81 mg in the morning. ALLERGIES: No known drug allergies. FAMILY HISTORY: Positive for coronary artery disease in both parents. SOCIAL HISTORY: and lives at home with his . He is currently on disability. Former smoker with [id number] smoking history, quit 20 years ago. No alcohol or drug abuse. REVIEW OF SYSTEMS: All 14 systems reviewed and as per HPI. PHYSICAL EXAM: The patient is morbidly obese, sitting in chair, in no apparent distress. Vital Signs: Temperature 98.6, pulse 62 beats per minute, respiratory rate 15 per minute, O2 sat 95% on room air, blood pressure 117/66. HEENT: Pupils are equal and reactive to light, mucous membranes moist. Neck: Supple, increased neck circumference, no JVD. Respiratory: Crackles at the bases bilaterally. Cardiovascular: S1, S2 present. Regular. No murmur. Abdomen: Morbidly obese. Bowel sounds present. Extremities: Chronic skin changes bilaterally, Charcot foot deformity of right foot. Neurologic: No focal deficits. DIAGNOSTIC STUDIES/LAB DATA: WBC count 9.5, hemoglobin 15.3, hematocrit 48, platelets 172. Sodium is 131, potassium 4.4, chloride 103, bicarb 25, BUN 18, creatinine 1.06. BNP 794. Chest x-ray as described above in HPI. IMPRESSION AND RECOMMENDATIONS: 61-year-old morbidly obese male with history of ischemic cardiomyopathy, significant coronary artery disease, status post cardiac catheterization with interstitial abnormalities noted on chest x-ray. Chest x-ray abnormalities - secondary to fluid overload and congestive heart failure exacerbation versus fibrotic and interstitial changes from occupational exposure and prior smoking history. Will need CT scan of the chest to further evaluate abnormalities. His BNP is also elevated, likely could be from heart failure, clinically he responded well to diuretics. The patient not in need of oxygen or in any kind of respiratory distress at this time. Will obtain CT scan of the chest as outpatient. He also needs further investigation for obstructive sleep apnea given underlying cardiac history and body habitus suggestive of sleep apnea. Will schedule the patient for sleep study as outpatient. Thank you for allowing me to participate in the care of your patient. Will follow up with you. [id number]/[facility] #: [id number] SUMI
--- NOTE | 2016-09-10 08:50 | DS ---
CC. Dr. Levon Cardona DISCHARGE SUMMARY: DATE OF ADMISSION: 09/08/16 DATE OF DISCHARGE: 09/09/16 FINAL DIAGNOSIS: Angina pectoris [facility] Heart Class-3 with severe CAD. SECONDARY DIAGNOSES: Coronary artery disease, ischemic cardiomyopathy, hyperlipidemia, essential hypertension, and deafness. HOSPITAL COURSE: The patient is a pleasant 61-year-old gentleman who has a significant history of underlying coronary artery disease with interventions in the past dating back to 2013 to the LAD during the throes of an acute anterior wall myocardial infarction. He was noted to have an ischemic cardiomyopathy and had a biventricular pacemaker placed due to significant bradycardia and the ability to utilize beta sofía therapy. He recently had reassessment of his residual coronary artery disease by Lexiscan stress test which revealed an EF of 27% with severe anterior fixed defect as well as inferior defect with some question of reversibility to the low posterior lateral wall. He was brought in for cardiac catheterization on the day of admission and this revealed the LAD stent to be patent with diffuse disease in the LAD as well as the presence of a borderline significant lesion in the proximal circumflex of 55% to 60%. His right coronary artery had a critical 99% lesion which was new in its midportion before turning onto the inferior surface of the heart. Of note, a small caliber PDA was totally occluded off the chicken ranch right chronically, as was the last posterior left ventricular branch which was a bifurcating vessel which was known from prior cardiac catheterization. He underwent successful intervention to the critical 99% mid right coronary artery with placement of a drug eluting stent. Post-procedure, he did well. Of note, because of crackles on examination on the day of discharge, a chest x- ray was performed which seemed to suggest the presence of eccentric CHF versus right lung fibrotic infiltrative pattern. Pulmonology consult was obtained with Dr. Lawson who felt that it probably was more consistent with congestive heart failure, but she planned on seeing the patient back in the office and deciding on performing a CT to look for possible underlying fibrotic lung disease. In the meantime we will be sending him home on his current medications and included with them having him take his furosemide instead of 40 alternating with 20 a day, have him take it 40 mg a day for the first week. I will be seeing him back in several days after discharge and will get a BMP at that time to check his BUN and creatinine. In the meantime, he was also seen by the hospitalist to manage his diabetes while in the hospital overnight. Also, we changed his isosorbide mononitrate timing to have him take his 30 mg pill in the evening. On the day of discharge, he was up and about, walking with no significant distress, no chest discomfort or shortness of breath. PHYSICAL EXAMINATION: Vital signs revealed blood pressure of 117/66, pulse 62 and regular, respirations 15, O2 saturation 94% on room air. Neck was supple. There was no increased JVP. Carotid with good upstroke and volume without bruits. Conjunctivae were pink. Sclerae clear. Lungs: Revealed no accessory muscle usage. There was good excursion. There were fibrotic crackles present on the right lung extending in the mid to upper area. The left did not have significant crackles, perhaps minimal at the base. Heart revealed no visible heaves, no palpable heaves or thrills. Normal S1 and S2. I did not appreciate any significant systolic or diastolic murmur. Heart sounds in general were somewhat distant due to large chest size. Abdomen was obese in nature, and soft. Extremities were heavy with edema to the right lower extremely, moderate in nature. The left had only mild at best. The right groin area was well healed from the cardiac catheterization, and distal pulse was intact. There was discoloration chronically of the lower extremities. Neuro, the patient has a problem with deafness from hearing. Musculoskeletal: The patient walks with a brace. Psychological: The patient with normal affect. LABORATORY DATA/ DIAGNOSTIC STUDIES: Laboratory results on the day of discharge revealed hemoglobin and hematocrit of 15.3 and 48 with platelet count of 172,000. The white count was 9,500. His sodium was 131, potassium 4.4, chloride 103, bicarb 25, BUN and creatinine of 18 and 1.0. B-natriuretic peptide was 794. EKG on the day of discharge showed a ventricularly paced rhythm from a bi-V pacer. MEDICATIONS: At the time of discharge, medications included: 1. Metoprolol succinate 25 mg a day. 2. Prednisone 5 mg a day. 3. Valsartan 160 mg twice a day. 4. Ranitidine 150 mg twice a day. 5. Magnesium 250 mg a day. 6. Folic acid one a day. 7. Clopidogrel 75 mg a day. 8. Aspirin 81 mg a day. 9. Mycophenolate 1000 mg twice a day. 10. Furosemide 40 mg a day for the first week, then back to 40 alternating with 20 mg. 11. Pravastatin 10 mg a day. 12. Tacrolimus 0.5 mg twice a day. 13. Cholecalciferol 5000 units every day. 14. Brimonidine one drop to both eyes twice a day. 13. Latanoprost one drop to both eyes at bedtime. 14. Imdur 30 mg in the evening. 15. Tamsulosin 0.4 mg daily. 16. Kayexalate one powder orally twice a day. 17. Insulin one unit subcutaneously three times daily with meals of Aspart NovoLog. 18. Insulin degludec 58 units subcu at bedtime. 19. The patient was started on Bactrim DS one pill twice a day for two weeks as he straight caths himself. I will be discussing with Infectious Disease the concern over whether chronic antibiotics are needed given the fact that he has the drug eluting stent placed. (It should be noted he was straight cathing himself routinely at the time of his original stents placed at [facility] and no antibiotics were given at that time for prolonged coverage.) FOLLOWUP: The patient will see me back in followup on 09/13/16 for continued ongoing management. The patient received a stent card and his education booklet in addition to his discharge instruction sheet. [id number]/[facility] #: [id number] MTDD
[2016-09-10] MEDS ORDERED: Metoprolol Succinate XL TAB* 25 MG PO SCH (09:00)
[2016-09-10] MEDS ORDERED: Furosemide TAB* 20 MG PO SCH (09:00)
== END 2016-09-09 15:28 | disposition home or self-care (01) | DRG 247 ==
LOC: CHICATH 08:18 → INTOOBSV 11:42 → ICU 11:42 → UNDODISOB 09-09 15:28
PROVIDERS: ADMIT Internal Medicine Cardiovascular Disease; ATTEND Internal Medicine Cardiovascular Disease
DX: I25.119 Atherosclerotic heart disease of native coronary artery with unspecified angina pectoris (principal); A52.16 Charcot's arthropathy (tabetic); E11.22 Type 2 diabetes mellitus with diabetic chronic kidney disease; E11.40 Type 2 diabetes mellitus with diabetic neuropathy, unspecified; I13.0 Hypertensive heart and chronic kidney disease with heart failure and stage 1 through stage 4 chronic kidney disease, or unspecified chronic kidney disease; I44.1 Atrioventricular block, second degree; I50.9 Heart failure, unspecified; Z94.0 Kidney transplant status; M86.8X7 Other osteomyelitis, ankle and foot; I25.5 Ischemic cardiomyopathy; E78.5 Hyperlipidemia, unspecified; H91.90 Unspecified hearing loss, unspecified ear; E66.01 Morbid (severe) obesity due to excess calories; I25.2 Old myocardial infarction; I73.9 Peripheral vascular disease, unspecified; E13.319 Other specified diabetes mellitus with unspecified diabetic retinopathy without macular edema; N18.9 Chronic kidney disease, unspecified; E11.621 Type 2 diabetes mellitus with foot ulcer; N40.0 Benign prostatic hyperplasia without lower urinary tract symptoms; N18.2 Chronic kidney disease, stage 2 (mild); Z82.49 Family history of ischemic heart disease and other diseases of the circulatory system; Z87.891 Personal history of nicotine dependence; Z79.4 Long term (current) use of insulin; Z79.02 Long term (current) use of antithrombotics/antiplatelets; Z79.82 Long term (current) use of aspirin; Z79.52 Long term (current) use of systemic steroids; Z95.0 Presence of cardiac pacemaker
CPT/HCPCS: 36415; 71020; 80048; 80053; 82553; 83735; 83880; 85025; 85610; 85730; 87641; 93005; 93458; A9270-GY; C1725; C1769; C1876; C1887; C9600-RC; G0378; J0461; J0583; J1644; J2001; J3010; J7507; J7512